=== PATIENT | female | born 1945 | race Caucasian/White ===

== ENCOUNTER 2019-04-30 06:39 | Outpatient (CLI) | payer MEDICARE, SELFPAY ==
--- NOTE | ~2019-04-30 | XR_ITS ---
EXAMINATION: XR chest 2V EXAM DATE: 04/30/2019 07:13 INDICATION: Dementia. TECHNIQUE: Frontal and lateral projections of the chest obtained and reviewed. Comparison is made to prior examination from 12/17/2018. FINDINGS: The lungs are clear. There are no pleural effusions. The cardiomediastinal silhouette is within normal limits. There is no pneumothorax suspected. There are cholecystectomy clips. There ar e bony degenerative changes. IMPRESSION: No acute cardiopulmonary findings. Reviewed, dictated and finalized at location B. GER VISUAL
--- NOTE | ~2019-04-30 | MR_ITS ---
EXAMINATION: MR brain/brain stem wo flo EXAM DATE: 04/30/2019 08:09 INDICATION: Short-term memory problems. TECHNIQUE: Magnetic resonance imaging (MRI) of the brain/brain stem obtained without contrast. Sagitt al T1, axial diffusion, gradient echo (T2*), T1, T2, FLAIR sequences obtained. Comparison is made to prior examination from 04/04/2014. FINDINGS: There are no areas of restricted diffusion to suggest acute infarction. There is no acute hemorrhage seen on the T2*, a hemosiderin sensitive sequence. No intraparenchymal brain mass lesion. There is mild periventricular and subcortical T2/FLAIR signal hyperintensity, nonspecific but probab ly related to small vessel ischemic disease (microangiopathy). There is mild prominence of the sulc i and ventricles related to cerebral atrophy. There are no extra-axial collections. Flow voids are seen in the cerebral arteries on the T2-weighted sequences consistent with their expected patency. The orbits are unremarkable. Soft tissue is unremarkable. IMPRESSION: 1. No acute intracranial findings. 2. Chronic age related findings. Reviewed, dictated and finalized at location B. FOLDER
== END 2019-04-30 06:40 | disposition home or self-care (01) ==
PROVIDERS: PCP Family Medicine; Visit Provider Family Medicine
DX: F03.90 Unspecified dementia, unspecified severity, without behavioral disturbance, psychotic disturbance, mood disturbance, and anxiety (principal); R41.3 Other amnesia
CPT/HCPCS: 70551; 71046

== ENCOUNTER 2020-02-03 07:54 | Outpatient (CLI) | payer MEDICARE, SELFPAY ==
--- NOTE | ~2020-02-03 | MM_ITS ---
EXAMINATION: MM screening [place] BI w boogie HISTORY: Screening TECHNIQUE: Craniocaudal and mediolateral oblique 3-D tomosynthesis images were obtained and synthetic 2-D images were generated. CAD analysis was submitted and interpreted. COMPARISON: Comparison to multiple prior studies sequentially, with oldest reviewed study dated 08/22. BREAST PARENCHYMAL COMPOSITION: There are scattered areas of fibroglandular density. FINDINGS: There is no evidence of suspicious mass, calcification, or architectural distortion to sugg est malignancy in either breast. There has been no suspicious interval change. IMPRESSION: 1. No mammographic evidence of malignancy. 2. Recommend routine screening mammography in one year. BI-RADS Category 1: Negative Reviewed, dictated and finalized at location A. [place] EVENT COORDINATOR
--- NOTE | ~2020-02-03 | DEXA_ITS ---
Bone Density Report Name: Nahomy Shaikh Age: 74 Sex: Female Ethnicity: White Date of : 1945 Indication: postmenopausal; height loss; cancer; Referring Provider: Dillon Darling Study: Bone densitometry was performed. Exam Date: February 03, 2020 Accession number: [id number] Bone Density: Region BMD T-score Z-score Classification AP Spine (L1-L4) 1.319 2.5 4.7 Normal Femoral Neck (Left) 0.829 -0.2 1.7 Normal Total Hip (Left) 1.010 0.6 2.2 Normal Total Hip Bilateral Avg 1.017 0.7 2.3 Normal Femoral Neck (Right) 0.886 0.3 2.3 Normal Total Hip (Right) 1.022 0.7 2.3 Normal World Health Organization criteria for BMD impression classify patients as: Normal (T-score at or above -1.0), Osteopenia (T-score between -1.0 and -2.5), or Osteoporosis (T-score at or below -2.5). 10-year Fracture Risk: FRAX not reported because: All T-scores for Spine Total, Hip Total, Femoral Neck at or above -1.0 Previous Exams: Region Exam Age BMD T-score BMD Change BMD Change Date g/cm2 vs Baseline vs Previous AP Spine(L1-L4) 02/03/2020 74 1.319 2.5 0.105(8.7%)# 0.051(4.0%)# 02/03/2013 67 1.268 2.0 0.055(4.5%)# 0.105(9.1%)# 02/11/2009 63 1.162 1.0 -0.051(-4.2%)* -0.082(-6.6%)* 01/14/2006 60 1.245 1.8 0.031(2.6%)* 0.031(2.6%)* 01/09/2004 58 1.213 1.5 Total Hip(Left) 02/03/2020 74 1.010 0.6 -0.222(-18.0%) -0.149(-12.9%) 02/03/2013 67 1.159 1.8 -0.072(-5.9%)# -0.014(-1.2%)# 02/11/2009 63 1.173 1.9 -0.058(-4.7%)* -0.018(-1.5%) 01/14/2006 60 1.191 2.0 -0.040(-3.2%)* -0.040(-3.2%)* 01/09/2004 58 1.231 2.4 Total Hip(Right) 02/03/2020 74 1.022 0.7 -0.200(-16.4%) -0.147(-12.5%) 02/03/2013 67 1.169 1.9 -0.054(-4.4%)# 0.006(0.5%)# 02/11/2009 63 1.162 1.8 -0.060(-4.9%)* -0.009(-0.8%) 01/14/2006 60 1.171 1.9 -0.051(-4.2%)* -0.051(-4.2%)* 01/09/2004 58 1.222 2.3 *Denotes significance at 95% confidence level, LSC for AP Spine = 0.022 g/cm2, LSC for Total Hip = 0.027 g/cm2 Clinical Information Provided by Patient: Has the following medical conditions: Cancer Patient maximum height was 65.5 Menopause Age: 54 No regular weight bearing exercise Does not regularly consume dairy products Onset of menses at age 14 Number of children 5 Impression: The patient has normal bone mass. No significant bone loss was observed. Discussion: BONE DENSITY IS AB
== END 2020-02-03 07:55 | disposition home or self-care (01) ==
LOC: ANHIMG 07:59
PROVIDERS: PCP Family Medicine; Visit Provider Physician Assistant Medical
DX: Z12.31 Encounter for screening mammogram for malignant neoplasm of breast (principal); Z78.0 Asymptomatic menopausal state
CPT/HCPCS: 77063; 77067; 77080

== ENCOUNTER 2020-05-30 10:44 | Emergency (ER) | payer MEDICARE, SELFPAY ==
--- NOTE | ~2020-05-30 | XR_ITS ---
EXAMINATION: XR knee RT min 4V DATE: 05/30/2020 11:55 INDICATION: Right knee pain. TECHNIQUE: 4 views of right knee were obtained. COMPARISON: Right knee radiographs 11/18/2013 FINDINGS: There is a total right knee arthroplasty in near-anatomic alignment with patellar resurfaci ng. No fracture. No periprosthetic lucency to suggest loosening or infection. There is no knee joint effusion. IMPRESSION: 1. Total right knee arthroplasty in near-anatomic alignment. Reviewed, dictated and finalized at location A. AGENT
--- NOTE | ~2020-05-30 | CT_ITS ---
EXAMINATION: CT facial & cervical spine wo DATE: 05/30/2020 11:44 INDICATION: Head injury. TECHNIQUE: Computed tomography (CT) of the maxillofacial region and cervical spine was performed with out intravenous contrast. Automated exposure control and iterative reconstruction technique were empl oyed. The dose-length product was 417.05 mGy-cm. COMPARISON: None FINDINGS: MAXILLOFACIAL CT: There is frontal scalp soft tissue swelling. The orbits are normal. There is minimal mucosal thickeni ng in left maxillary sinus. Bone alignment is normal. No fracture. CERVICAL SPINE CT: There is kyphosis and 7 degrees levocurvature of cervical spine. Vertebral body heights are normal. T here is moderately decreased disc height at C4-C5 and severely decreased disc height at C5-C6 and C6- C7. The following disc levels are specifically discussed: C2-C3: There is mild bilateral uncovertebral joint osteoarthritis. There is severe bilateral facet carrie int osteoarthritis. There is no neural foraminal stenosis. There is no central canal stenosis. C3-C4: There is mild right and severe left uncovertebral joint osteoarthritis. There is severe bilate ral facet joint osteoarthritis. There is mild right and moderate left neural foraminal stenosis. Ther e is mild central canal stenosis. C4-C5: There is severe bilateral uncovertebral joint osteoarthritis. There is severe bilateral facet joint osteoarthritis. There is mild bilateral neural foraminal stenosis. There is mild central canal stenosis. C5-C6: There is severe bilateral uncovertebral joint osteoarthritis. There is severe bilateral facet joint osteoarthritis. There is mild bilateral neural foraminal stenosis. There is mild central canal stenosis. C6-C7: There is severe bilateral uncovertebral joint osteoarthritis. There is severe bilateral facet joint osteoarthritis. There is mild bilateral neural foraminal stenosis. There is mild central canal stenosis. C7-T1: There is no uncovertebral joint osteoarthritis. There is severe bilateral facet joint osteoart hritis. There is mild bilateral neural foraminal stenosis. There is no central canal stenosis. IMPRESSION: 1. No fracture. 2. Severe cervical spondylosis. Reviewed, dictated and finalized at location A. ICE COUNTER CASHIER
--- NOTE | ~2020-05-30 | CT_ITS ---
EXAMINATION: CT brain wo con DATE: 05/30/2020 11:44 INDICATION: Head injury. TECHNIQUE: Computed tomography (CT) of the head was performed without intravenous contrast. The mA wa s adjusted according to patient size. Iterative reconstruction technique was employed. The dose-lengt h product was 605.33 mGy-cm. COMPARISON: None FINDINGS: There are scattered areas of low attenuation in the cerebral white matter. There is no intr acranial hemorrhage, acute infarction, or abnormal intracranial mass lesion. The ventricles are luca l in size. There is frontal scalp soft tissue swelling. The paranasal sinuses are clear. The orbits a re normal. The mastoid air cells are normal. IMPRESSION: 1. Mild nonspecific cerebral white matter disease, which likely represents chronic small vessel ische brigitte disease. Reviewed, dictated and finalized at location A. HAND IMPRESSION: 1. Mild nonspecific cerebral white matter disease, which likely represents separator inserter ab small vessel ischemic disease.
--- NOTE | ~2020-05-30 | XR_ITS ---
EXAMINATION: XR knee LT min 4V DATE: 05/30/2020 11:55 INDICATION: Left knee pain. TECHNIQUE: 4 views of left knee were obtained. COMPARISON: None. FINDINGS: There is a total left knee arthroplasty in near-anatomic alignment with patellar resurfacin g. No fracture. No periprosthetic lucency to suggest loosening or infection. There is a small knee carrie int effusion. There is anterior soft tissue swelling. IMPRESSION: 1. Total left knee arthroplasty in near-anatomic alignment. 2. Small knee joint effusion. Reviewed, dictated and finalized at location A. ON CLASSER AIDE
[2020-05-30 10:59] VITALS: BP 155/81; PULSE 70; RESP 18; TEMP 36.6; O2SAT 98
[2020-05-30] MEDS: ACETAMINOPHEN 500 MG TABLET 1000 MG PO (11:58)
[2020-05-30] MEDS: TETANUS,DIPHTHERIA,AC PERTUSSIS ADULT (0.5 ML) BOOSTRIX IM (11:59)
--- NOTE | 2020-05-30 12:34 | ED.FALL ---
HPI - Fall General Chief Complaint: Fall Stated Complaint: fall, head injury Time Seen by Provider: 05/30/20 10:52 Source: patient Mode of arrival: ambulatory Limitations: no limitations History of Present Illness HPI Narrative: This is a 74 year old female who presents for evaluation of a head injury s/p fall. She states her foot got caught getting out of the car, so she fell face first, hitting the concrete. She denies LOC or dizziness. She does not take any blood thinners. She has abrasions to her face and nose but she denies epistaxis. She reports right sided neck pain and right hand abrasion. She also reports bilateral knee pain and she has a history of bilateral knee replacements. She is unaware of her last tetanus shot. She has been ambulatory since her fall. complaint: fall Onset (ago): hour(s) (3) Related Data Home Medications Medication Instructions Recorded Confirmed lamotrigine 150 mg tablet 150 mg PO DAILY 11/04/19 05/17/20 donepezil 10 mg tablet 10 mg PO ONCE 05/22/20 mirtazapine 15 mg tablet 15 mg PO DAILY 05/22/20 venlafaxine 75 mg tablet 75 mg PO DAILY 05/22/20 Allergies Allergy/AdvReac Type Severity Reaction Status Date / Time loratadine Allergy Unknown Unknown Verified 05/30/20 10:53 Review of Systems Review of Systems: All systems reviewed & are unremarkable except as noted in HPI and below PMFSH Past Medical History Medical History Hallux valgus with bunions (~2005) Hammertoe History of basal cell carcinoma (~1993) Wears glasses Surgical History Surgical History 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 History of breast biopsy (~2006) benign History of knee replacement x 2 Hx of cholecystectomy (~1994) S/p nephrectomy 02-15-19/ right lap nephrectomy/ right renal cell cancer Family History Family History Mother Diabetes mellitus Depression Dementia Hyperlipidemia Father Hypertension Heart disease Cancer of kidney Mitral valve prolapse Anxiety Hyperlipidemia Sibling Bone cancer Other Family history of arthritis Family history of glaucoma Family history of malignant neoplasm Social History Social History (Updated 05/22/20 @ 09:27 by Anastasiya Orozco MA) Smoking status: Never smoker Alcohol intake: current Substance use: never Gender identity (if verbalized by the patient): Female Exam Const: General: no acute distress and alert Orientation/consciousness: patient oriented x3 HENMT: Head: other (mid forehead hematoma with left forehead abrasion) General nose exam: Other nasal findings present (swelling to nasal brigde with bruising and abrasion, left periorbital ecchy) Mouth: Yes lip normal Throat: uvula midline Eyes: Pupils: Equal, round and reactive pupils present EOM: EOMs intact bilaterally Chest: Chest palpation & inspection: normal inspection of the chest Resp: Effort & Inspection: normal respiratory effort and no retractions Auscultation: clear to auscultation bilaterally Cardio: Rate: regular rate Rhythm: regular rhythm Heart sounds: no murmurs GI: GI Palp: Yes Soft to palpation, No Tenderness to palpation present (GI) and No Guarding due to palpation present (GI) Auscultation: normal bowel sounds Back/Spine/Pelvis: Cervical Spine: cervical ROM normal, cervical muscular tenderness and Cervical spine tenderness Skin: Other: abrasion to bilateral knee with bilateral ecchymosis, FROM Neuro: General: patient oriented x3 and moves all extremities Course Reevaluation(s) Reevaluation #1: I Discussed with patient CT findings. She has abrasion with skin partial avulsion to right hand palmar along 5th cp. She request me to remove skin so I cleaned it with saline and removes small piece with scissors. I otoniel
[2020-05-30 12:59] VITALS: BP 118/68; PULSE 72; RESP 17; O2SAT 100
== END 2020-05-30 13:00 | disposition home or self-care (01) ==
PROVIDERS: Emergency Provider General Practice; PCP Family Medicine
DX: S00.31XA Abrasion of nose, initial encounter (principal); S80.01XA Contusion of right knee, initial encounter; S80.02XA Contusion of left knee, initial encounter; S00.83XA Contusion of other part of head, initial encounter; S05.12XA Contusion of eyeball and orbital tissues, left eye, initial encounter; S61.401A Unspecified open wound of right hand, initial encounter; M54.2 Cervicalgia; Z23 Encounter for immunization; Z85.828 Personal history of other malignant neoplasm of skin; Z96.653 Presence of artificial knee joint, bilateral; Z90.5 Acquired absence of kidney; Z85.528 Personal history of other malignant neoplasm of kidney; R90.82 White matter disease, unspecified; M47.812 Spondylosis without myelopathy or radiculopathy, cervical region; W17.89XA Other fall from one level to another, initial encounter
CPT/HCPCS: 11042; 70450; 70486; 72125; 73564; 90471; 90715; 99284; A9270

== ENCOUNTER 2020-08-08 09:30 | Outpatient (RCR) | payer MEDICARE, SELFPAY ==
--- NOTE | 2020-07-04 11:39 | PTOPEVAL ---
Thank you for referring Nahomy Shaikh to [facility] [place] The patient is scheduled to be seen for therapy? 2 x/week for 5 weeks. Please review, sign, date and return this plan of care RUTH. I agree with and certify that the following plan of care is medically necessary. Referring Physician Date Attending Provider: Dorothy Tao MD Physical Therapy Evaluation Problems leg length difference, unsteadiness, fall Onset 05/30/20 Additional Evaluation Detail jose m knee replacement She had a fall last month getting out of the car, hitting her head. Denies any other falls. She rides recumbent bike for 30 min at level 1. Subjective Information She reports she has difficulty Query Text:As Reported By Patient/ with walking that is worse Family when in the community. She will use objects to assist with mobilty at home. She reports difficulty getting off low surface, getting objects from the ground. Reports her knees ache. Reports increase dizziness with changing position States her legs are different length, but has never been measured. Prior Level of Function Home Setting Home Type Multiple Levels Environmental Barriers Stairs, Greater than 4,Stairs, Threshold Living Situation With Spouse Mobility Assistive Devices (Used Last 3 None Months) Comments Additional Prior Level of Function She has 1 step to enter, and 1 Comments flight to basement, but does not go into basement. She performs minimal driving. 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 Pain Assessment Self Report Pain Level 0 Pain Score Pain Score 0: Self Report Lower Extremity Range of Motion General Lower Extremity Range of Motion Gross Lower Extremity Range of Motion left knee: 0-112 deg Comments right knee: 0-114 deg Lower Extremity Muscle Strength Testing Hip Strength Right Hip Flexion Strength 3 Fair Hip Extension Strength 3- Fair - Hip Abduction Strength 3- Fair - Left Reason Not Measured WNL/Right Hip Flexion Strength 4 Good Hip Extension Strength 3 Fair Hip Abduction Strength
--- NOTE | 2020-07-14 14:24 | PCPTNOTE ---
Patient did not show to appointment this date. Therapist called patient who stated she thought her appointment was at a different time. Verified next appointment with patient on July 18.
--- NOTE | 2020-07-25 09:45 | PCPTNOTE ---
Patient did not show up for scheduled appointment this date. Called and had to leave a message.
--- NOTE | 2020-08-08 10:22 | PTOPEVAL ---
Thank you for referring Nahomy Shaikh to [facility] [place] [facility] Nahomy Yoon has attended 9 therapy visits to address her impairments. She has partially achieved her therapy goals. She is indep with her home program with improve mobility, strength and tolerance with daily activities. She has reached maximal potential with skilled therapy services. Will DC PT at this time. Please review, sign, date and return this discharge summary RUTH. I agree with and certify that the following plan of care is medically necessary. Referring Physician Date Attending Provider: Dorothy Tao MD Physical Therapy Discharge Note Diagnosis leg length difference, unsteadiness, fall Onset 05/30/20 Additional Evaluation Detail jose m knee replacement She had a fall last month getting out of the car, hitting her head. Denies any other falls. She rides recumbent bike for 30 min at level 1. Subjective Information She does feel like she is Query Text:As Reported By Patient/ doing better. She has improved Family vestibular impairments. She is using the shoe lift and reports some improved balance. She reports some days she has no knee pain or limitations. She is able to walk the grocery store without limitations. She is using the cane when walking longer distances without difficulty. Not using the cane at home. She continues to have a fear of steps and not trusting her right leg for support. Denies increase dizziness with changing position. Pain Assessment Self Report Pain Level 0 Lower Extremity Muscle Strength Testing Hip Strength Right Hip Flexion Strength 4+ Good + Hip Extension Strength 4- Good - Hip Abduction Strength 3 Fair Left Hip Flexion Strength 4+ Good + Hip Extension Strength 4- Good - Hip Abduction Strength 3 Fair Knee Strength Left Knee Flexion Strength 4+ Good + Knee Extension Strength 5 Normal Right Knee Flexion Strength 4+ Good + Knee Extension Strength 5 Normal Ankle Strength Bilateral Ankle Dorsiflexion Strength 5 Normal Posture Standing Position Head/C-Spine Posture Forward Head Thoracic Spine Posture Increased Kyphosis Lumbar Spine Posture
== END 2020-08-09 09:17 | disposition home or self-care (01) ==
LOC: ANHPT 09:30
PROVIDERS: PCP Family Medicine; Visit Provider Family Medicine
DX: M21.70 Unequal limb length (acquired), unspecified site (principal); R26.81 Unsteadiness on feet; E66.01 Morbid (severe) obesity due to excess calories; Z68.37 Body mass index [BMI] 37.0-37.9, adult; Z96.659 Presence of unspecified artificial knee joint
CPT/HCPCS: 97110; 97162; 97530

== ENCOUNTER 2021-10-04 10:00 | Outpatient (RCR) | payer MEDICARE, SELFPAY ==
--- NOTE | 2021-08-09 15:24 | PTOPEVAL ---
PHYSICAL THERAPY INITIAL EVALUATION. Thank you for referring Nahomy Shaikh to [facility].? The patient is scheduled to be seen for therapy? 2x/week for 4 weeks. Please review, sign, date and return this plan of care RUTH. I agree with and certify that the following plan of care is medically necessary. Referring Physician Date Attending Provider: Dorothy Tao MD Evaluation Information Diagnosis Neck pain Onset Chronic Subjective Information Pt states she has neck pain Query Text:As Reported By Patient/ that comes and goes, she does Family not know what causes the pain to fluctuate. She declines headaches. She is often woken up in the middle of the night due to pain. Pain Assessment Neck Reported Pain Level 0 Pain Description Tightness Pain Frequency Chronic Lowest Pain Intensity 0 Greatest Pain Intensity 7 Cervical ROM Cervical Flexion (0-60) 28 active Cervical Extension (0-70) 50 active Cervical Lateral Flexion Right (0-50) 24 active Cervical Lateral Flexion Right (0-50) 30 passive Cervical Lateral Flexion Left (0-50) 21 active Cervical Lateral Flexion Left (0-50) 30 passive Cervical Rotation Right (0-90) 48 active Cervical Rotation Right (0-90) 60 passive Cervical Rotation Left (0-90) 45 active Cervical Rotation Left (0-90) 60 passive Cervical ROM 50% of Normal Upper Extremity Range of Motion Gross Upper Extremity Range of Motion R shoulder flexion active 109, Comments passive 130 L shoulder flexion 121, passive, 136 R shoulder abduction active 92 in scaption, passive 90 in true abduction L shoulder abduction active 104 in scaption, passive 100 in true abduction R,L functional ext rot: C7, T2 R,L functional IR: L5, LR increased upper trap activation and shoulder elevation with use of shoulder Upper Extremity Muscle Strength Testing Gross Upper Extremity Strength Comments BUE grossly 4/5 Jeffery shoulder ext rot 3+/5 Posture Posture Evaluation View Posterior Thoracic Spine Posture Flattened Lumbar Spine Posture Increased Lordosis Shoulder Posture (L) Rounded,(R) Rounded Scapula Posture (L) Winged
--- NOTE | 2021-09-07 14:21 | PTOPEVAL ---
PHYSICAL THERAPY PROGRESS REPORT. Thank you for referring Nahomy Shaikh to [facility] [place].? The patient is scheduled to be seen for therapy? 1x/week for 4 weeks. Please review, sign, date and return this plan of care RUTH. I agree with and certify that the following plan of care is medically necessary. Referring Physician Date Attending Provider: Dorothy Tao MD *PT Outpatient Evaluation Start: 08/09/21 Evaluation Information Diagnosis Neck pain Onset Chronic Subjective Information Pt states her neck is doing Query Text:As Reported By Patient/ alright. She states she Family usually wakes up around 5am with neck stiffness, she states this decreases during the day but is not perfect. By early evening the pain has starting to increase again, she states she does not normally do much during the day for the pain to increase again. She reports good compliance with her HEP. Pain Assessment Self Report Pain Assessment Neck Reported Pain Level 0 Pain Description Aching,Tightness Greatest Pain Intensity 5 Cervical ROM Cervical Flexion (0-60) 44 active Cervical Extension (0-70) 50 active Cervical Lateral Flexion Right (0-50) 35 active Cervical Lateral Flexion Right (0-50) 45 passive Cervical Lateral Flexion Left (0-50) 28 active Cervical Lateral Flexion Left (0-50) 45 passive Cervical Rotation Right (0-90) 45 active Cervical Rotation Right (0-90) 60 passive Cervical Rotation Left (0-90) 58 active Cervical Rotation Left (0-90) 70 passive Cervical ROM 75% of Normal Upper Extremity Range of Motion Gross Upper Extremity Range of Motion R shoulder flexion active 109, Comments passive 130 L shoulder flexion 121, passive 136 R shoulder abduction active 96 in true abduction L shoulder abduction active 114 in scaption, passive 114 in true abduction R,L functional ext rot: T2, T2 R,L functional IR: L5, L5 increased upper trap activation and shoulder elevation with use of shoulder Upper Extremity Muscle Strength Testing Gross Upper Extremity Strength Comments BUE grossly 4+/5 Jeffery shoulder ext r
--- NOTE | 2021-09-13 11:25 | PCPTNOTE ---
Patient called & cancelled scheduled appointment this date due to not feeling well.
--- NOTE | 2021-10-04 12:34 | PTOPEVAL ---
PHYSICAL THERAPY PROGRESS REPORT AND DISCHARGE SUMMARY. Thank you [facility] The patient is to be discharged from therapy services at this time. Please review, sign, date and return this plan of care RUTH. I agree with and certify that the following plan of care is medically necessary. Referring Physician Date Attending Provider: Dorothy Tao MD Evaluation Information Diagnosis Neck and shoulder pain Onset Chronic Subjective Information Pt states her neck and Query Text:As Reported By Patient/ shoulder are both doing decent Family . She declines waking up in the night due to pain. She declines pain at rest, in the morning, and at night like before. She now only reports pain with active motions reaching out and over her head . She only reports neck pain with max rotation. Pain Assessment Neck Reported Pain Level 0 Greatest Pain Intensity 4 Cervical ROM Cervical Flexion (0-60) 48 active Cervical Extension (0-70) 50 active Cervical Lateral Flexion Right (0-50) 35 active Cervical Lateral Flexion Right (0-50) 45 passive Cervical Lateral Flexion Left (0-50) 35 active Cervical Lateral Flexion Left (0-50) 45 passive Cervical Rotation Right (0-90) 45 active Cervical Rotation Right (0-90) 60 passive Cervical Rotation Left (0-90) 55 active Cervical Rotation Left (0-90) 70 passive Cervical ROM 75% of Normal Upper Extremity Range of Motion Gross Upper Extremity Range of Motion R shoulder flexion active 98, Comments passive 135 L shoulder flexion active 121, passive 138 R shoulder abduction active 90 in true abduction L shoulder abduction active 92 in true abduction, passive 120 in true abduction R,L functional ext rot: T2, T2 R,L functional IR: L5, L5 increased upper trap activation and shoulder elevation with use of shoulder Upper Extremity Muscle Strength Testing Gross Upper Extremity Strength Comments BUE grossly 4+/5 Jeffery shoulder ext rot 4/5 Posture Posture Evaluation View Posterior Thoracic Spine Posture Flattened Lumbar Spine Posture Increased Lordosis Shoulder Posture (L) [place]
== END 2021-10-04 15:06 | disposition home or self-care (01) ==
LOC: ANHPT 10:00
PROVIDERS: PCP Family Medicine; Visit Provider Family Medicine
DX: M54.2 Cervicalgia (principal); G30.9 Alzheimer's disease, unspecified; F02.80 Dementia in other diseases classified elsewhere, unspecified severity, without behavioral disturbance, psychotic disturbance, mood disturbance, and anxiety
CPT/HCPCS: 97014; 97110; 97112; 97140; 97161; 97530; G0283

== ENCOUNTER → 2021-12-25 14:37 | Outpatient (CLI) | payer MEDICARE, SELFPAY ==
--- NOTE | ~2021-12-25 | XR_ITS ---
EXAMINATION: XR shoulder LT min 2V DATE: 12/25/2021 15:02 INDICATION: Left shoulder pain. TECHNIQUE: 4 views of left shoulder were obtained. COMPARISON: Left shoulder radiographs 07/30/2018 FINDINGS: Bone alignment is normal. No fracture. There is severe osteoarthritis of glenohumeral joint and mild osteoarthritis of acromioclavicular joint. IMPRESSION: 1. Polyarticular osteoarthritis. Reviewed, dictated and finalized at location A.
--- NOTE | ~2021-12-25 | XR_ITS ---
EXAMINATION: XR shoulder RT min 2V DATE: 12/25/2021 15:02 INDICATION: Right shoulder pain. TECHNIQUE: 4 views of right shoulder were obtained. COMPARISON: Right shoulder radiographs 07/30/2018 FINDINGS: Bone alignment is normal. No fracture. There is severe osteoarthritis of glenohumeral joint and mild osteoarthritis of acromioclavicular joint. IMPRESSION: 1. Polyarticular osteoarthritis. Reviewed, dictated and finalized at location A.
== END ==
PROVIDERS: PCP Physician Assistant; Visit Provider Physician Assistant
DX: M19.011 Primary osteoarthritis, right shoulder (principal); M19.012 Primary osteoarthritis, left shoulder
CPT/HCPCS: 73030

== ENCOUNTER 2022-02-09 12:58 | Inpatient (IN) | payer MEDICARE, SELFPAY ==
[2022-02-09] VITALS (15 sets, daily range): BP systolic 100–140; BP diastolic 66–80; PULSE 85–101; RESP 12–25; TEMP 36.3–36.8; O2SAT 97–100; BMI 29.7
--- NOTE | ~2022-02-09 | XR_ITS ---
XR chest 1V portable DATE: 02/09/2022 14:38 INDICATION: Confusion, ambulatory impairment TECHNIQUE: Portable upright AP chest on 02/09/2022 at 1425 hours COMPARISON: 04/30/2019 PA and lateral chest FINDINGS: Borderline heart size. Aortic calcification and unfolding. No hilar or mediastinal enlargem ent. No pulmonary infiltrate or consolidation, pleural effusion or pulmonary vascular congestion or pneumo thorax is detected. Osteopenia. Severe osteoarthritic change at the glenohumeral joints. Degenerative spurring of the tho racic spine. Surgical clips, right upper quadrant. IMPRESSION: Borderline heart size. Aortic atherosclerosis No active pulmonary disease Reviewed, dictated and finalized at location A. 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
--- NOTE | ~2022-02-09 | MR_ITS ---
EXAMINATION: MR brain/brain stem wo/w con DATE: 02/10/2022 12:48 INDICATION: Confusion. TECHNIQUE: Magnetic resonance imaging (MRI) of the brain and brainstem was performed without and with 17 mL MultiHance intravenous contrast. COMPARISON: Brain MRI 04/30/2019, head CT 02/09/2022, 05/30/20 FINDINGS: There is widespread patchy increased T2-weighted signal intensity in the cerebral white mat ter with a posterior predominance. There is increased T2-weighted signal intensity in the javy. There is no intracranial hemorrhage, acute infarction, or abnormal intracranial mass lesion. The ventricle s are normal in size. The paranasal sinuses are clear. The mastoid air cells are normal. The orbits a re normal. IMPRESSION: 1. Extensive white matter disease with a posterior predominance with marked worsening from 05/30/2020, consistent with posterior reversible encephalopathy syndrome (PRES). Reviewed, dictated and finalized at location E. ST IMPRESSION: 1. Extensive white matter disease with a posterior predominance with marked wor sening from 05/30/2020, consistent with posterior reversible encephalopathy syndr ome (PRES).
--- NOTE | ~2022-02-09 | CT_ITS ---
EXAMINATION: CT brain wo con DATE: 02/09/2022 15:14 INDICATION: Confusion. Transient alteration of awareness TECHNIQUE: Computed tomography (CT) of the head was performed without intravenous contrast. The mA wa s adjusted according to patient size. Iterative reconstruction technique was employed. Exam dose: 60 5.33 mGy-cm total exam DLP. COMPARISON: 05/30/2020 CT brain FINDINGS: There is interval diminished attenuation in the right temporal parietal occipital area, lik mera due to subacute infarct. No intracranial mass lesion or hemorrhage, midline shift or mass effect effect is detected. Normal ve ntricular size. There is nonspecific diminished attenuation of the cerebral white matter, likely due to chronic small vessel ischemic changes. Vertebral and basilar and carotid siphon internal carotid artery calcificat ions are noted. No subdural or epidural hematoma. No skull fracture or bone destruction. The mastoid air cells and included paranasal sinuses are luca lly developed and aerated. IMPRESSION: Diminished attenuation in the right temporoparietal occipital area, likely due to subacu te infarcts; no intracranial hemorrhage Cerebral atherosclerosis and chronic small vessel ischemic changes of the cerebral white matter Reviewed, dictated and finalized at Location A. Reviewed, dictated and finalized at location A. 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
--- NOTE | ~2022-02-09 | CT_ITS ---
EXAMINATION: CTA brain carotid DATE: 02/10/2022 12:59 INDICATION: Stroke. TECHNIQUE: Computed tomographic angiography (CTA) of the head was performed with 100 mL Omnipaque-350 intravenous contrast. CTA of the neck was performed with intravenous contrast. Automated exposure co ntrol and iterative reconstruction technique were employed. The dose-length product was 1135.92 mGy-c m. Maximum intensity projection and volume rendered 3D-reconstructions were created by the technologi on a separate workstation. COMPARISON: Head CT 02/09/2022 FINDINGS: HEAD CTA: There is extensive patchy distribution of decreased attenuation in the cerebral white matte r with a posterior prominence. There is decreased attenuation in the javy. There is no intracranial h emorrhage, acute infarction, or abnormal intracranial mass lesion. The ventricles are normal in size. There is mild mucosal thickening in the paranasal sinuses. The mastoid air cells are normal. The harmeet tebral arteries are codominant. There is no significant stenosis of basilar artery or the posterior c erebral arteries. There is no significant stenosis of the intracranial internal carotid arteries or a nterior or middle cerebral arteries. Anterior communicating artery is normal. The posterior communica ting arteries are normal. There is no aneurysm. NECK CTA: Main pulmonary is enlarged, consistent with pulmonary arterial hypertension. There is no si gnificant stenosis of the vertebral arteries. There is no visible plaque in the proximal internal car otid arteries. There is 0% stenosis of the proximal right internal carotid artery relative to normal distal artery lumen diameter (NASCET criteria). There is 0% stenosis of the proximal left internal ca rotid artery relative to normal distal artery lumen diameter. There is severe cervical spondylosis. IMPRESSION: 1. Extensive cerebral white matter disease, likely posterior reversible encephalopathy syndrome (PRES ). 2. No aneurysm or significant intracranial arterial stenosis. 3. 0% stenosis of the proximal internal carotid arteries relative to normal distal artery lumen diame ters (NASCET criteria). Reviewed, dictated and finalized at location E. ANCHOR IMPRESSION: 1. Extensive cerebral white matter disease, likely posterior reversible encepha lopathy syndrome (PRES). 2. No aneurysm or significant intracranial arterial stenosis. 3. 0% stenosis of the proximal internal carotid arteries relative to normal dis lyla artery lumen diameters (NASCET criteria).
--- NOTE | 2022-02-09 14:20 | ECG_ITS ---
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
--- NOTE | 2022-02-09 14:23 | ED.AMS ---
HPI - Altered Mental Status General Chief Complaint: Altered Mental Status Stated Complaint: Memory problems, altered mental status Time Seen by Provider: 02/09/22 14:09 Source: patient, family () and RN notes reviewed Limitations: altered mental status History of Present Illness HPI narrative: This is a 76 year old female with history of dementia, hyperlipidemia who presents for evaluation of worsening confusion. Patient's reports patient has memory loss issues that she is followed by neurology at [facility]. She is enrolled in a clinical trial in which she received an infusion 3 weeks ago. He states there are no side effects and patient was doing ok until 3 days ago. For the past 3 days, she is having difficulty remember how to do things. He states he had to help her tie her shoes and get dressed today. He also reports she has shuffling gait and needing visual merchandising assistant to walk. He denies any recent fall, medication change, fever, chills. Patient is oriented to person and age. She is also aware of her . She did not know that she is in hospital currently. She is aware of being forgetful and having difficulty thinking. Related Data Home Medications Medication Instructions Recorded Confirmed lamotrigine 150 mg tablet 150 mg PO DAILY 11/04/19 02/09/22 mirtazapine 15 mg tablet 15 mg PO DAILY 05/22/20 02/09/22 venlafaxine 150 mg tablet,extended 150 mg PO DAILY 10/26/20 02/09/22 release 24 hr mecobalamin (vitamin B12) 1,000 1,000 mcg PO DAILY 12/20/21 02/09/22 mcg chewable tablet memantine 10 mg tablet 10 mg PO BID 02/09/22 02/09/22 Allergies Allergy/AdvReac Type Severity Reaction Status Date / Time No Known Drug Allergies Allergy Mild Unknown Verified 02/09/22 18:10 Review of Systems Review of Systems: All systems reviewed & are unremarkable except as noted in HPI and below Constitutional: Constitutional: Denies chills, Denies fatigue and Denies fever(s) Eyes: Eyes: Denies change in vision and Denies photophobia Respiratory: Respiratory: Denies chest congestion and Denies cough Gastrointestinal: Gastrointestinal: Denies abdominal pain, Denies nausea and Denies vomiting PMFSH Past Medical History Medical History (Updated 02/09/22 @ 21:59 by Meghan Brandt MD) Acquired leg length discrepancy Alzheimer disease neuro 09.11.21 stable/ no changes in management Cervical polyp 2020 benign Depression with anxiety Hallux valgus with bunions (~2005) Hammertoe History of basal cell carcinoma (~1993) History of renal carcinoma right nephrectomy 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 Prolapse of female pelvic organs Ventral hernia Wears glasses Surgical History Surgical History 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 History of breast biopsy (~2006) benign History of knee replacement x 2 Hx of cholecystectomy (~1994) S/p nephrectomy 02-15-19/ right lap nephrectomy/ right renal cell cancer Family History Family History Mother Diabetes mellitus Depression Dementia Hyperlipidemia Father Hypertension Heart disease Cancer of kidney Mitral valve prolapse Anxiety Hyperlipidemia Sibling Bone cancer Other Family history of arthritis Family history of glaucoma Family history of malignant neoplasm Social History Social History (Updated 02/09/22 @ 20:47 by Rosalba Goodman PA-C) Social History: Surrogate medical decision maker: Abdolu Neel, spouse. Code status: Full code. Smoking status: Never smoker Alcohol intake: never Substance use: never Substance use type: does not use Spiritual care concerns: No Exam Const: General: alert Nutritional Appearance: well nourished Limitations: altered menta
[2022-02-09 14:39] LABS: Basophils Percent Auto 0.5 % (0.2-1.2); Eosinophils Percent Auto 0.5 % (0-4.4); Hematocrit 37.7 % (37.0-47.0); Hemoglobin 12.4 g/dL (12.0-15.0); Immature Granulocyte Absolute 0.02 K/mm3 (0.00-0.031); Immature Granulocyte Percent A 0.3 % (0-0.5); Lymphocytes Absolute Auto 2.28 K/mm3 (0.9-3.2); Lymphocytes Percent Auto 34.3 % (18.3-44.2); Mean Corpuscular HGB Conc 32.9 g/dl (32-36); Mean Corpuscular Hemoglobin 30.9 pg (26-34); Mean Platelet Volume 8.8 fl (7.4-10.4); Monocytes Absolute Auto 0.5 K/mm3 (0.1-0.6); Monocytes Percent Auto 7.1 % (2.6-8.5); Neutrophils Absolute Auto 3.8 K/mm3 (1.3-6.7); Neutrophils Percent Auto 57.3 % (45.5-73.1); Platelet Count Result 290 k/mm3 (150-375); Red Blood Count 4.01 M/mm3 (4.2-5.4); Red Cell Distribution Width 11.9 % (11.5-14.5); White Blood Count 6.6 K/mm3 (4.5-10.0)
[2022-02-09 14:49] LABS: Alanine Aminotransferase 20 U/L (6-35); Albumin Level 4.6 g/dL (3.5-5.1); Alkaline Phosphatase 64 U/L (38-126); Anion Gap 13 mmol/L (8-16); Aspartate Amino Transferase 33 U/L (14-36); Bilirubin,Total 0.4 mg/dL (0.2-1.3); Blood Urea Nitrogen 18 mg/dL (7-17); Calcium 8.9 mg/dL (8.4-10.2); Carbon Dioxide 24 mmol/L (22-30); Chloride 101 mmol/L (98-107); Estimated CRCL calculation 53 ml/min; Estimated Glomerular Filt Rate > 60; Glucose 101 mg/dL (65-110); Potassium 4.2 mmol/L (3.4-5.0); Sodium 138 mmol/L (137-145)
[2022-02-09 14:50] LABS: Ethanol < 10 mg/dL (<10)
[2022-02-09] MEDS: SODIUM CHLORIDE 0.9% IV 1,000 ML 999 ML IV CONT (14:56)
[2022-02-09 14:57] LABS: Prothrombin Time 13.2 Seconds (11.1-14.7)
[2022-02-09 14:58] LABS: Partial Thromboplastin Time 26.4 SECONDS (22.3-36.8)
[2022-02-09 15:00] LABS: Troponin I < 0.012 ng/mL (0.000-0.034)
--- NOTE | 2022-02-09 18:10 | ADMGEN ---
This patient, Nahomy Shaikh, was admitted to Medical Room 348-01. Patient/family oriented to hospital policies and general routines including ID bracelet, bed and alarms, visiting hours, pain management, procedures, bathroom and other care routines, personal items, smoking policy, room service/diet, and visiting hours. Information on how to activate the Rapid Response Team has been discussed. Patient/Family are encouraged to report perceived risks to care and to ask questions if they do not understand what they are told or what they should do.
[2022-02-09] MEDS: ASPIRIN 81 MG CHEWABLE TABLET 324 MG PO (18:49)
[2022-02-09 18:55] LABS: Appearance Urine Clear (Clear); Bilirubin Urine Negative (Negative); Blood Urine Negative (Negative); Color Urine Yellow (Yellow); Glucose Urine UA Negative (Negative); Ketones Urine Trace mg/dL (Negative); Leukocyte Esterase Ur 1+ LEU/UL (Negative); Nitrate Urine Negative (Negative); Protein Urine Negative (Negative); Specific Grav Ur 1.015 (1.001-1.035); Urobilinogen Urine 0.2 mg/dL (<2.0); pH Urine 6.5 (5.0-9.0)
[2022-02-09 19:03] LABS: RBC Urine 0-2 /hpf (0-2); Squamous Epithelial Cell Urine Rare /hpf (Few); WBC Urine 0-3 /hpf
[2022-02-09 19:12] LABS: Amphetamine Screen Urine Negative (Negative); Barbiturate Screen Urine Negative (Negative); Benzodiazepines Screen Urine Negative (Negative); Cannabinoid Screen Urine Negative (Negative); Cocaine Screen Urine Negative (Negative); Methadone Screen Urine Negative (Negative); Opiate Screen Urine Negative (Negative); Phencyclidine Screen Urine Negative (Negative)
[2022-02-09 19:16] LABS: Add Urine Microscopic? YES
--- NOTE | 2022-02-09 19:45 | PM.IMHP ---
H&P: HPI History of Present Illness Date/Time: 02/09/22 19:45 Chief Complaint: Confusion. Narrative: This is a pleasant 76-year-old female with dementia, hypertension, and dyslipidemia who presented to the emergency department today from home for evaluation of confusion. The patient appears to suffer from pretty significant short-term memory loss and while she is able to provide some history some of the following history is supplemented via a review of her electronic medical records as well as information provided by her spouse. She is followed by Neurology at [facility] and is currently enrolled in a clinical trial in which she received infusion 3 weeks ago. There were no obvious, immediate side effects and she has been doing well up until the last 3 days at which time she seems to have gone down hill. For instance she seems to be forgetting how to do everyday activities such as tying her shoes and getting dressed. Her gait has been shuffling and she is needing assistance when walking. In the emergency department her vital signs were stable and labs were unremarkable. Head CT showed diminished attenuation in the right temporoparietal occipital area likely due to subacute infarcts and she is being admitted in this setting for further workup. At the time my evaluation she is resting comfortably and has no specific complaints. She specifically denies headache, vertigo, focal weakness, paresthesias, visual changes, facial droop, difficulty speaking, difficulty swallowing. She is not having any chest pain, shortness a breath, nausea, or vomiting. She does not think she has a history of stroke, carotid artery disease, or dysrhythmia. Review of Systems Review of Systems: A review of systems was conducted but significantly limited by her short-term memory loss. She stated no to every question asked of her aside from those things listed in HPI. [facility] Past Medical History Medical History Acquired leg length discrepancy Alzheimer disease neuro 6.14. stable/ no changes in management Cervical polyp 2020 benign Depression with anxiety Hallux valgus with bunions (~2005) Hammertoe History of basal cell carcinoma (~1993) History of renal carcinoma right nephrectomy 2018/ clear cell carcinoma Mixed hyperlipidemia Obstructive sleep apnea 1.4.22 split night: mild to moderate jojo. Prolapse of female pelvic organs Ventral hernia Wears glasses Surgical History Surgical History 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 History of breast biopsy (~2006) benign History of knee replacement x 2 Hx of cholecystectomy (~1994) S/p nephrectomy 02-15-19/ right lap nephrectomy/ right renal cell cancer Family History Family History Mother Diabetes mellitus Depression Dementia Hyperlipidemia Father Hypertension Heart disease Cancer of kidney Mitral valve prolapse Anxiety Hyperlipidemia Sibling Bone cancer Other Family history of arthritis Family history of glaucoma Family history of malignant neoplasm Social History Social History (Updated 02/09/22 @ 20:47 by Rosalba Goodman PA-C) Social History: Surrogate medical decision maker: Abdoul Shaikh, spouse. Code status: Full code. Smoking status: Never smoker Alcohol intake: never Substance use: never Substance use type: does not use Spiritual care concerns: No Meds Home Medications and Allergies Home Medications Medication Instructions Recorded Confirmed Type lamotrigine 150 mg tablet 150 mg PO DAILY 11/04/19 02/09/22 History mirtazapine 15 mg tablet 15 mg PO DAILY 05/22/20 02/09/22 History venlafaxine 150 mg tablet,extended 150 mg PO DAILY 10/26/20 02/09/22 History release 24 hr atorvastatin 20 mg tablet 20 mg PO DAILY
[2022-02-10] VITALS (8 sets, daily range): BP systolic 107–113; BP diastolic 52–70; PULSE 66–98; RESP 14–18; TEMP 36.6–36.7; O2SAT 99–100
--- NOTE | 2022-02-10 01:01 | PCRCNOTE ---
patient does not wear home CPAP unit and does not want to wear one here.
[2022-02-10 06:25] LABS: Cholesterol 166 mg/dL (0-200); HDL Direct 74 mg/dL; Triglycerides 85 mg/dL (<150)
[2022-02-10 06:36] LABS: LDL Cholesterol Direct 68 mg/dL
[2022-02-10] MEDS: ASPIRIN 81 MG ENTERIC TABLET PO (08:42)
[2022-02-10] MEDS: ATORVASTATIN 20 MG TABLET PO (08:42)
[2022-02-10] MEDS: VENLAFAXINE HCL XR 75 MG CAP.ER.24H 150 MG PO (08:42)
[2022-02-10] MEDS: MIRTAZAPINE 15 MG TABLET PO (08:42)
[2022-02-10] MEDS: MELOXICAM 7.5 MG TABLET PO (08:43)
[2022-02-10] MEDS: lamoTRIgine 100 MG TABLET PO (08:43)
[2022-02-10] MEDS: lamoTRIgine 50 MG TABLET PO (08:43)
[2022-02-10] MEDS: MEMANTINE 10 MG TABLET PO ×2 (08:43→17:46)
--- NOTE | 2022-02-10 11:10 | WPDNEURCNPN ---
Assessment and Plan Assessment and plan (1) CVA (cerebral vascular accident): Code(s): I63.9 - Cerebral infarction, unspecified Status: Acute (2) Altered mental status: Code(s): R41.82 - Altered mental status, unspecified Status: Acute (3) Alzheimer disease: Code(s): G30.9 - Alzheimer's disease, unspecified; F02.80 - Dementia in other diseases classified elsewhere, unspecified severity, without behavioral disturbance, psychotic disturbance, mood disturbance, and anxiety Status: Acute Plan Ms. Shaikh is a 76 year old female with a history of dementia presenting for evaluation of behavior change including worsening memory and speech difficulties. Found to have hypodensity in the R temporoparietooccipital region, suggestive for infarct. Etiology is unclear. Considering large vessel disease. Neuro exam showed findings consistent with location of stroke -- including motor apraxia, visual agnosia, and receptive aphasia. - MRI brain w/o contrast, CTA brain and neck - Surface echo with bubble study - Depending on results of MRI, but if stroke is localized only to the region noted on CT will recommend ASA 81mg and Plavix 75mg daily x 3 months, then ASA 81mg daily. - Continue Lipitor 20mg daily Consult date: 02/10/22 Time Seen: 11:10 Reason for consult: Stroke HPI: Nahomy Shaikh is a 76 year old female with a history of Alzheimer's dementia and HLD presenting due to worsening memory deficit. At baseline patient is able to communicate appropriately and fluently, and knows her name and where she is. About three days ago, family noticed, that she was having problems with her memory and speech. She was brought to [facility] ED where she had a CT head that showed hypodensity in the right temporoparietal/occipital region suggestive of subacute infarct. Her NIH on presentation was 2 (loss of fluency and level of consciousness). EKG showed sinus rhythm. Her blood pressure was 100-140s systolic. UA and tox screen were negative as well. Her LDL is 68. She takes Lipitor 20mg daily, but was not previously on any blood thinners. , sister, and [id number] are at bedside. They feels that she is still not at baseline, and is still having difficulties mostly with memory and speech. She is followed at [facility] for her Alzheimer's and is part of a clinical trial for a new Alzheimer's drug (Remtemetug). She received an infusion about 3 weeks ago. Sister reports she had an MRI about a week ago that showed fluid on the brain . Review of Systems Review of Systems: ROS unobtainable: Yes unobtainable due to mental status PMFSH Past Medical History Medical History Acquired leg length discrepancy Alzheimer disease neuro 6 stable/ no changes in management Cervical polyp 2020 benign Depression with anxiety Hallux valgus with bunions (~2005) Hammertoe History of basal cell carcinoma (~1993) History of renal carcinoma right nephrectomy 2018/ clear cell carcinoma Mixed hyperlipidemia Obstructive sleep apnea 1.4. split night: mild to moderate jojo. Prolapse of female pelvic organs Ventral hernia Wears glasses Surgical History Surgical History 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 History of breast biopsy (~2006) benign History of knee replacement x 2 Hx of cholecystectomy (~1994) S/p nephrectomy 02-15-19/ right lap nephrectomy/ right renal cell cancer Family History Family History Mother Diabetes mellitus Depression Dementia Hyperlipidemia Father Hypertension Heart disease Cancer of kidney Mitral valve prolapse Anxiety Hyperlipidemia Sibling Bone cancer Other Family history of arthritis Family history of glaucoma Family history of malignant neoplasm Soc
--- NOTE | 2022-02-10 12:17 | PCSTNOTE ---
Patient presents with severely impaired auditory comprehension and verbal expression. Reading and visual recognition are impaired. Patient is unable to write due to inability to hold pen, appear to not recognize object. Visual recognition of objects appears impaired. Patient is able to complete highly familiar, predictable phrases with such as it's raining cats and . Able to imitate individual simple words. Able to point to body parts (ear, hair, nose, neck, chin). Yes/no responses are unreliable but within normalized context more accurate. Speech therapy is recommended with emphasis on functional communication and establishing environmental context to increase opportunities for successful communication occurrences. Thank you for the referral of this patient.
--- NOTE | 2022-02-10 13:47 | PM.IMPN ---
Progress Note: A&P Assessment and Plan (1) Cerebrovascular accident: Code(s): I63.9 - Cerebral infarction, unspecified Status: Acute Assessment and Plan: -Brain CT showed evidence of a subacute infarction in the right temporoparietal occipital area -MRI: consistent with posterior reversible encephalopathy syndrome (PRES) -echo Doppler bubble study ordered -CTA brain and carotid: consistent with MRI findings, 0% stenosis of internal carotid arteries -telemetry monitoring -due to symptoms starting on Friday patient is not a good candidate for tPA -aspirin 81 mg prescribed -statin changed to Crestor 20 mg -PT OT and speech evaluating patient -neurology following patient (2) Alzheimer disease: Code(s): G30.9 - Alzheimer's disease, unspecified; F02.80 - Dementia in other diseases classified elsewhere, unspecified severity, without behavioral disturbance, psychotic disturbance, mood disturbance, and anxiety Status: Acute Assessment and Plan: -continue home medications (3) Depression with anxiety: Code(s): F41.8 - Other specified anxiety disorders Status: Acute Assessment and Plan: Continue home medications (4) Mixed hyperlipidemia: Code(s): E78.2 - Mixed hyperlipidemia Status: Acute Assessment and Plan: Atorvastatin 20 mg discontinued and Crestor 20 mg added Time Spent With Patient Time with patient: Greater than 35 minutes Subjective Date/time seen: 02/10/22 13:47 Interval history: 76-year-old woman with history of Alzheimer's dementia, hyperlipidemia and obstructive sleep apnea. Patient brought in to the ER yesterday due to altered mental status. Patient's , sister, and thlnxpn-fk-ryi are all in the room with her. states that patient's cognition has been quickly declining since Friday. Although patient has Alzheimer's dementia, states since Friday that she is unable to do ADLs, recall long-term memories, short-term memory has worsened. Due to patient's cognitive changes she is unable to answer questions accurately. states that he does not believe she is in any pain. Exam Narrative: HENMT: Tachy mucous membranes EYES: EOM intact b/l. Peripheral vision not intact. Unable to say how many fingers I was holding up. NECK: no lymphadenopathy RESPIRATORY: clear to auscultation CARDIO: RRR GI: soft, nontender, bowel sounds present SKIN: no rashes EXTREMITIES: no edema, redness or tenderness NEURO: Wmuy-me-uzuo intact. Motor apraxia, visual agnosia, and receptive aphasia. Moderate left-sided bhavana-neglect. No facial drooping. Patient unable to answer questions such as where she was born, where she was, the time of year, unable to follow commands. Patient was able to state her name, her 's name, and her sister's name. Most of my questions were answered with [facility]. Objective Data Vital Signs Vital Signs: Vital Signs - 24 hr 02/09/22 14:13 02/09/22 14:16 02/09/22 14:30 Temperature 98.1 F Pulse Rate 100 98 Respiratory Rate 15 17 Blood Pressure Pulse Oximetry 100 97 Oxygen Delivery 02/09/22 14:45 02/09/22 15:00 02/09/22 16:02 Temperature Pulse Rate 101 H 98 89 Respiratory Rate 25 H 17 18 Blood Pressure Pulse Oximetry 98 97 100 Oxygen Delivery 02/09/22 16:16 02/09/22 16:20 02/09/22 17:36 Temperature Pulse Rate 89 91 89 Respiratory Rate 21 H 20 19 Blood Pressure 123/80 122/78 130/68 Pulse Oximetry Oxygen Delivery 02/09/22 18:27 02/09/22 18:40 02/09/22 18:57 Temperature 98.2 F Pulse Rate 89 89 Respiratory Rate 16 Blood Pressure 124/66 Pulse Oximetry 98 Oxygen Delivery Room Air 02/09/22 19:35 02/09/22 20:30 02/09/22 20:00 Temperature 97.8 F Pulse Rate 92 86 Respiratory Rate 18 Blood Pressure 100/70 Pulse Oximetry 97 97 Oxygen Delivery Room Air 02/10/22 00:00 02/10/22 04:00 02/10/22 04:34 [facility]
[2022-02-10] MEDS: CYANOCOBALAMIN 1,000 MCG TABLET 1000 MCG PO (17:46)
[2022-02-11] VITALS (9 sets, daily range): BP systolic 108–127; BP diastolic 64–80; PULSE 76–106; RESP 16–18; TEMP 36.4–36.7; O2SAT 98–100
--- NOTE | 2022-02-11 | ECHO_ITS ---
Patient Info Name: Nahomy Shaikh Age: 76 years : 1945 Gender: Female Ht: 67 in Wt: 190 lbs BSA: 2.04 m2 HR: 78 bpm BP: 101 / 59 mmHg Technical Quality: Good Exam Date: 02/11/2022 11:25 AM Exam Location: [facility] Pulmonary Exam Room: ICU7 Patient Status: Inpatient Admit Date: 02/10/2022 Staff Ordering Physician: Lisandra Johnson PA-C Associate Project Manager: Lidia Catherine RCS Attending Provider: Karyna Lim DO Referring Physician: Alex COX; Exam Type: CA echo doppler w bubble study Study Info Indications - CVA Complete two-dimensional, color flow and Doppler transthoracic echocardiogram is performed with agitated saline. Complete two-dimensional, color flow and Doppler transthoracic echocardiogram is performed. Contrast/Agitated Saline Contrast/Ag. Saline: Agitated Saline Amount: 20.00 ml Administered By: Saud Davidson FLORENTIN Existing IV Access: Yes IV Access Condition: patent with no signs of infiltration Summary 1. Complete two-dimensional, color flow and Doppler transthoracic echocardiogram is performed. 2. Left ventricular chamber dimension is normal. 3. Left ventricular systolic function is normal, estimated at 65-70%. 4. The left ventricular diastolic function is grade I diastolic dysfunction. 5. E/e' 12 is mildly elevated. 6. Left atrial chamber dimension is mildly enlarged. 7. There is mild aortic valve sclerosis. 8. The mitral valve has globular calcified posterior mitral annulus. 9. There is trace tricuspid valve regurgitation. 10. No pulmonary hypertension, estimated pulmonary arterial systolic pressure is 33 mmHg. Left Ventricle E/e' 12 is mildly elevated. Left ventricular chamber dimension is normal. Left ventricular systolic function is normal, estimated at 65-70%. The left ventricular diastolic function is grade I diastolic dysfunction. Right Ventricle Right ventricular chamber dimension is normal. Right ventricular systolic function is normal. Left Atria Left atrial chamber dimension is mildly enlarged. Right Atria Right atrial chamber dimension is normal. Atrial Septum Agitated saline injection with and without valsalva maneuver opacified right side cardiac chambers without shunt to left side cardiac chambers. Intact interatrial septum visualized by 2D and agitated saline imaging. Aortic Valve The aortic valve is trileaflet. There is mild aortic valve sclerosis. There is no aortic valve stenosis. There is no aortic valve regurgitation. Pulmonic Valve There is no pulmonic regurgitation. Mitral Valve The mitral valve has globular calcified posterior mitral annulus. There is no mitral valve stenosis. There is no mitral valve regurgitation. Tricuspid Valve There is trace tricuspid valve regurgitation. No pulmonary hypertension, estimated pulmonary arterial systolic pressure is 33 mmHg. Pericardium/Pleural There is no pericardial effusion. Inferior Vena Cava Normal inferior vena cava with >50% collapse upon inspiration consistent with normal right atrial pressure, 5 mmHg. Aorta The aortic root size at the sinus of Valsalva is normal. Left Ventricular Outflow Tract Name Value Normal LVOT 2D
[2022-02-11 08:22] LABS: Hematocrit 39.5 % (37.0-47.0); Mean Corpuscular HGB Conc 32.9 g/dl (32-36); Mean Corpuscular Hemoglobin 30.7 pg (26-34); Mean Corpuscular Volume 93.4 fl (80-100); Mean Platelet Volume 8.9 fl (7.4-10.4); Platelet Count Result 297 k/mm3 (150-375); Red Blood Count 4.23 M/mm3 (4.2-5.4); Red Cell Distribution Width 11.9 % (11.5-14.5); White Blood Count 6.6 K/mm3 (4.5-10.0)
[2022-02-11 08:46] LABS: Anion Gap 12 mmol/L (8-16); Blood Urea Nitrogen 12 mg/dL (7-17); Calcium 9.1 mg/dL (8.4-10.2); Carbon Dioxide 28 mmol/L (22-30); Chloride 102 mmol/L (98-107); Estimated CRCL calculation 61 ml/min; Estimated Glomerular Filt Rate > 60; Glucose 96 mg/dL (65-110); Potassium 3.7 mmol/L (3.4-5.0); Sodium 142 mmol/L (137-145)
[2022-02-11] MEDS: VENLAFAXINE HCL XR 75 MG CAP.ER.24H 150 MG PO (09:36)
[2022-02-11] MEDS: lamoTRIgine 100 MG TABLET PO (09:37)
[2022-02-11] MEDS: CYANOCOBALAMIN 1,000 MCG TABLET 1000 MCG PO (09:37)
[2022-02-11] MEDS: ASPIRIN 81 MG ENTERIC TABLET PO (09:37)
[2022-02-11] MEDS: MIRTAZAPINE 15 MG TABLET PO (09:37)
[2022-02-11] MEDS: MEMANTINE 10 MG TABLET PO ×2 (09:37→17:31)
[2022-02-11] MEDS: lamoTRIgine 50 MG TABLET PO (09:37)
[2022-02-11] MEDS: ROSUVASTATIN 10 MG TABLET 20 MG PO (09:37)
[2022-02-11] MEDS: MELOXICAM 7.5 MG TABLET PO (09:37)
--- NOTE | 2022-02-11 13:48 | PM.IMPN ---
Progress Note: A&P Assessment and Plan (1) Cerebrovascular accident: Code(s): I63.9 - Cerebral infarction, unspecified Status: Acute Assessment and Plan: -telemetry monitoring -aspirin 81 mg prescribed -statin changed to Crestor 20 mg -PT OT and speech evaluating patient -neurology following patient -Brain CT showed evidence of a subacute infarction in the right temporoparietal occipital area -MRI: consistent with posterior reversible encephalopathy syndrome (PRES) -CTA brain and carotid: consistent with MRI findings, 0% stenosis of internal carotid arteries -Unable to be sure what exactly is the source for patient's encephalopathy. Patient does not have a history of hypertension. -I discussed MRI and CTA results with patient and her family after speaking with both Dr. Coles and Dr. Sanchez -I called patient's neurologist at [facility] along with coordinator for Alzheimer's clinical trial and I was not able to reach either of them. Plan to reach out to clinical trial coordinator in regards to other participants possibly having similar side effects. (2) Alzheimer disease: Code(s): G30.9 - Alzheimer's disease, unspecified; F02.80 - Dementia in other diseases classified elsewhere, unspecified severity, without behavioral disturbance, psychotic disturbance, mood disturbance, and anxiety Status: Acute Assessment and Plan: -continue home medications (3) Depression with anxiety: Code(s): F41.8 - Other specified anxiety disorders Status: Acute Assessment and Plan: Continue home medications (4) Mixed hyperlipidemia: Code(s): E78.2 - Mixed hyperlipidemia Status: Acute Assessment and Plan: Atorvastatin 20 mg discontinued and Crestor 20 mg added Time Spent With Patient Time with patient: Greater than 35 minutes Subjective Date/time seen: 02/11/22 13:48 Interval history: 76-year-old woman with a history of Alzheimer's dementia, depression and obstructive sleep apnea. Patient seems more alert compared to yesterday patient is alert and oriented to self and place. Patient able to answer more questions today compared to yesterday. Patient denies pain, nausea vomiting, swelling in the extremities, and diarrhea. Although patient is still somewhat confused and an unreliable historian. states that she has no complaints. Patient's and sister both state that they feel as if Nahomy Cleary has improved from yesterday. Exam Narrative: HENMT: Moist mucous membranes EYES: EOM intact b/l. Peripheral vision improved. NECK: no lymphadenopathy RESPIRATORY: clear to auscultation CARDIO: RRR GI: soft, nontender, bowel sounds present SKIN: no rashes EXTREMITIES: no edema, redness or tenderness NEURO: Rbfj-um-nuwx intact. Motor apraxia, visual agnosia, and receptive aphasia. Moderate left-sided bhavana-neglect. No facial drooping. Patient able to answer more my questions compared to yesterday. Patient able to follow some commands. Dsulgr-fo-vrma not intact. Objective Data Vital Signs Vital Signs: Vital Signs - 24 hr 02/10/22 16:00 02/10/22 22:00 02/10/22 20:00 Temperature 98 F 98.0 F Pulse Rate 98 68 68 Respiratory Rate 14 18 18 Blood Pressure 113/67 110/70 Pulse Oximetry 100 100 100 Oxygen Delivery Room Air 02/10/22 20:00 02/11/22 00:00 02/11/22 04:00 Temperature Pulse Rate 78 95 82 Respiratory Rate Blood Pressure Pulse Oximetry Oxygen Delivery 02/11/22 06:00 02/11/22 08:00 02/11/22 12:00 Temperature 98.0 F Pulse Rate 76 98 77 Respiratory Rate 18 Blood Pressure 108/64 Pulse Oximetry 100 Oxygen Delivery Intake/Output Intake/Output: Intake & Output 02/08/22 02/09/22 02/10/22 02/11/22 23:59 23:59 23:59 23:59 Intake Total 1000 480 120 Output Total 1200 1750 Balance -200 -1270 120 Meds/Results Medications: Active Medications Generic Name Dose Route Start Last Admin Trade Name
[2022-02-12] VITALS (9 sets, daily range): BP systolic 114–124; BP diastolic 62–74; PULSE 85–117; RESP 18; TEMP 36.6–36.8; O2SAT 97–99
[2022-02-12 05:40] LABS: Hemoglobin 12.7 g/dL (12.0-15.0); Mean Corpuscular HGB Conc 32.6 g/dl (32-36); Mean Corpuscular Hemoglobin 31.1 pg (26-34); Mean Corpuscular Volume 95.6 fl (80-100); Mean Platelet Volume 8.9 fl (7.4-10.4); Platelet Count Result 278 k/mm3 (150-375); Red Blood Count 4.08 M/mm3 (4.2-5.4); White Blood Count 6.2 K/mm3 (4.5-10.0)
[2022-02-12 05:52] LABS: Anion Gap 7 mmol/L (8-16); Blood Urea Nitrogen 11 mg/dL (7-17); Calcium 8.7 mg/dL (8.4-10.2); Carbon Dioxide 29 mmol/L (22-30); Chloride 107 mmol/L (98-107); Estimated CRCL calculation 69 ml/min; Estimated Glomerular Filt Rate > 60; Glucose 89 mg/dL (65-110); Magnesium 2.2 mg/dL (1.6-2.3); Potassium 3.7 mmol/L (3.4-5.0); Sodium 143 mmol/L (137-145)
[2022-02-12] MEDS: ASPIRIN 81 MG ENTERIC TABLET PO (09:04)
[2022-02-12] MEDS: ROSUVASTATIN 10 MG TABLET 20 MG PO (09:04)
[2022-02-12] MEDS: MEMANTINE 10 MG TABLET PO ×2 (09:05→17:19)
[2022-02-12] MEDS: MIRTAZAPINE 15 MG TABLET PO (09:05)
[2022-02-12] MEDS: CYANOCOBALAMIN 1,000 MCG TABLET 1000 MCG PO (09:05)
[2022-02-12] MEDS: VENLAFAXINE HCL XR 75 MG CAP.ER.24H 150 MG PO (09:05)
[2022-02-12] MEDS: lamoTRIgine 100 MG TABLET PO (09:05)
[2022-02-12] MEDS: lamoTRIgine 50 MG TABLET PO (09:05)
[2022-02-12] MEDS: MELOXICAM 7.5 MG TABLET PO (09:05)
--- NOTE | 2022-02-12 14:11 | PM.IMPN ---
Progress Note: A&P Assessment and Plan (1) Posterior reversible encephalopathy syndrome: Code(s): I67.83 - Posterior reversible encephalopathy syndrome Status: Acute Assessment and Plan: -telemetry monitoring -aspirin 81 mg prescribed -statin changed to Crestor 20 mg -PT OT and speech evaluating patient -neurology following patient -Brain CT showed evidence of a subacute infarction in the right temporoparietal occipital area -MRI: consistent with posterior reversible encephalopathy syndrome (PRES) -CTA brain and carotid: consistent with MRI findings, 0% stenosis of internal carotid arteries -Unable to be sure what exactly is the source for patient's encephalopathy. Patient does not have a history of hypertension. -I discussed MRI and CTA results with patient and her family after speaking with both Dr. Coles and Dr. Sanchez -I called patient's neurologist at [facility] along with coordinator for Alzheimer's clinical trial both were informed of the patient's condition. I tried making an appointment for the patient for follow-up neurology today and have not heard back from the office. (2) Cerebrovascular accident: Code(s): I63.9 - Cerebral infarction, unspecified Status: Acute Assessment and Plan: see above (3) Alzheimer disease: Code(s): G30.9 - Alzheimer's disease, unspecified; F02.80 - Dementia in other diseases classified elsewhere, unspecified severity, without behavioral disturbance, psychotic disturbance, mood disturbance, and anxiety Status: Acute Assessment and Plan: -continue home medications (4) Depression with anxiety: Code(s): F41.8 - Other specified anxiety disorders Status: Acute Assessment and Plan: Continue home medications (5) Mixed hyperlipidemia: Code(s): E78.2 - Mixed hyperlipidemia Status: Acute Assessment and Plan: Atorvastatin 20 mg discontinued and Crestor 20 mg added Time Spent With Patient Time with patient: Greater than 35 minutes Subjective Date/time seen: 02/12/22 14:11 Interval history: 76-year-old woman with history of Alzheimer's dementia presented to the ER with altered mental status that has been getting progressively worse over the past week. Patient's MRI and CTA revealed posterior reversible encephalopathy syndrome. I have reached out to patient's clinical trial for Alzheimer's dementia and her neurologist patient 15. The clinical trial facility was unsure whether PRES was from experimental medication or not. Dr. Coles and Dr. Magana both consulted on this patient and have agree for discharge and having her follow-up with her neurologist on outpatient basis. Patient denies any chest pain, shortness a breath, swelling in her extremities, abdominal pain, nausea, vomiting, and diarrhea. Patient is due to be discharged to [facility]. patient cannot be accepted until tomorrow, she will be staying another night awaiting placement. Exam Narrative: HENMT: Moist mucous membranes EYES: EOM intact b/l. Peripheral vision improved. NECK: no lymphadenopathy RESPIRATORY: clear to auscultation CARDIO: RRR GI: soft, nontender, bowel sounds present SKIN: no rashes EXTREMITIES: no edema, redness or tenderness NEURO: Qjdh-nt-brok intact. Motor apraxia, visual agnosia, and receptive aphasia. Moderate left-sided bhavana-neglect. No facial drooping. Patient Unable to follow some commands. Bnkdfh-fh-opbs not intact. Patient oriented to self. Objective Data Vital Signs Vital Signs: Vital Signs - 24 hr 02/11/22 16:00 02/11/22 21:58 02/11/22 21:00 Temperature 97.5 F L Pulse Rate 106 H 100 102 H Respiratory Rate 16 Blood Pressure 126/76 Pulse Oximetry 98 Oxygen Delivery 02/11/22 21:00 02/12/22 00:00 02/12/22 04:00 Temperature Pulse Rate 93 94 91 Respiratory Rate 16 Blood Pressure Pulse Oximetry 98 Oxygen Delivery Room Air 02/12/22 06:00 02/12/22 08:00 02/12/22 12
--- NOTE | 2022-02-12 15:32 | PCPTNOTE ---
Attempted to see patient for Physical Therapy this date, however patient declined to do therapy today. Patient's family was in the room. RN notified. Will plan to continue treatment per plan of care.
[2022-02-13] VITALS (7 sets, daily range): BP systolic 118–129; BP diastolic 72–78; PULSE 80–106; RESP 18–20; TEMP 36.3–36.8; O2SAT 97–98
[2022-02-13] MEDS: VENLAFAXINE HCL XR 75 MG CAP.ER.24H 150 MG PO (08:49)
[2022-02-13] MEDS: MIRTAZAPINE 15 MG TABLET PO (08:49)
[2022-02-13] MEDS: MELOXICAM 7.5 MG TABLET PO (08:49)
[2022-02-13] MEDS: MEMANTINE 10 MG TABLET PO (08:49)
[2022-02-13] MEDS: lamoTRIgine 100 MG TABLET PO (08:49)
[2022-02-13] MEDS: lamoTRIgine 50 MG TABLET PO (08:49)
[2022-02-13] MEDS: CYANOCOBALAMIN 1,000 MCG TABLET 1000 MCG PO (08:49)
[2022-02-13] MEDS: ASPIRIN 81 MG ENTERIC TABLET PO (08:49)
[2022-02-13] MEDS: ROSUVASTATIN 10 MG TABLET 20 MG PO (08:49)
--- NOTE | 2022-02-13 13:06 | PCSTNOTE ---
Patient in restroom for lengthy period of time; will attempt ST later or tomorrow.
--- NOTE | 2022-02-13 15:59 | PM.DS ---
DS: Admitting Diagnosis Discharge Date 02/13/2022 1600 Admitting Diagnosis Cerebrovascular accident Alzheimer disease Depression with anxiety Mixed hyperlipidemia DS: Discharge Diagnosis Discharge Diagnosis (1) Posterior reversible encephalopathy syndrome: Code(s): I67.83 - Posterior reversible encephalopathy syndrome Status: Acute (2) Cerebrovascular accident: Code(s): I63.9 - Cerebral infarction, unspecified Status: Acute (3) Alzheimer disease: Code(s): G30.9 - Alzheimer's disease, unspecified; F02.80 - Dementia in other diseases classified elsewhere, unspecified severity, without behavioral disturbance, psychotic disturbance, mood disturbance, and anxiety Status: Chronic (4) Depression with anxiety: Code(s): F41.8 - Other specified anxiety disorders Status: Chronic (5) Mixed hyperlipidemia: Code(s): E78.2 - Mixed hyperlipidemia Status: Chronic DS: Summary Hospital Course Reason for hospitalization: confusion Hospital Course: Nahomy Shaikh is a 76-year-old female with dementia, hypertension, and dyslipidemia who presented to the emergency department, from home, for evaluation of confusion. The patient appeared to suffer from pretty significant short-term memory loss and while she was able to provide some history, some of her medical history was supplemented via a review of her electronic medical records, as well as information provided by her spouse. She is followed by Neurology at [facility] and is currently enrolled in a clinical trial in which she received infusion 3 weeks ago. There were no obvious, immediate side effects and she has been doing well up until the last 3 days at which time she seems to have gone down hill. For instance she seemed to be forgetting how to do everyday activities such as tying her shoes and getting dressed.? Her gait has been shuffling and she is needing assistance when walking. In the emergency department her vital signs were stable and labs were unremarkable. Head CT showed diminished attenuation in the right temporoparietal occipital area likely due to subacute infarcts and she was admitted in this setting for further workup. She denied headache, vertigo, focal weakness, paresthesias, visual changes, facial droop, difficulty speaking, difficulty swallowing. No c/o chest pain, shortness a breath, nausea, or vomiting. She does not think she has a history of stroke, carotid artery disease, or dysrhythmia. Posterior reversible encephalopathy syndrome Brain MRI showed Extensive white matter disease with a posterior predominance with marked worsening from 05/30/2020, consistent with posterior reversible encephalopathy syndrome (PRES). Neurology was consulted and it was undetermined the exact source for patient's encephalopathy.?Attempts were made to contact the patient's Neurologist at [facility] alone with the coordinator for the Alzheimer's clinical trial to inform them of the patient's condition, but reportedly could not be reached. The patient's imaging was placed on a disc and the patient's family was instructed to contacted her Neurologist as soon as possible. She was monitored on telemetry and continued on medical therapy for subacute strokes as below. Cerebrovascular accident She presented to the ED with alterations in mentation. Neurology was consulted for assistance in management. CT head showed evidence of a subacute infarction in the right temporoparietal occipital area. Brain MRI was concerning for posterior reversible encephalopathy syndrome (PRES). CTA brain and carotid: consistent with MRI findings, 0% stenosis of internal carotid arteries. She was treated with aspirin 81 mg PO daily and statin therapy was changed from lipitor to crestor 20 mg daily. PT/OT and speech therapy were consulted and SNF was recommended. No dysphagia was noted. She was monitored on telemetry and no arrhythmia was noted. The patient wa
--- NOTE | 2022-02-13 17:47 | PC.NURSE ---
Pt was supposed to be discharged to [facility] this afternoon. Pt family has been asking multiple questions all day long. When being notified that patient was being discharged family changed their minds and asked to be sent to [place]. I informed them that if we did that she could be sitting here for days waiting for a bed. Explained that they were better off letting her discharge and just making an appt with her primary neurologist as instructed by our medical staff. Family was insistent that she go to [place]. Ok with Neuro for her to be discharged and take her to [place] ER where her primary neuro will meet her there.
== END 2022-02-13 17:00 | disposition short-term general hospital (02) | DRG 64 ==
LOC: ANHED 14:40 → ANH3MED 16:56
PROVIDERS: Internal Medicine Critical Care Medicine; Physician Assistant; Admitting Provider Student in an Organized Health Care Education/Training Program; Emergency Provider General Practice; PCP Family Medicine; Visit Provider Nurse Practitioner Family
DX: I63.9 Cerebral infarction, unspecified (principal); I67.83 Posterior reversible encephalopathy syndrome; G30.9 Alzheimer's disease, unspecified; F02.80 Dementia in other diseases classified elsewhere, unspecified severity, without behavioral disturbance, psychotic disturbance, mood disturbance, and anxiety; R47.01 Aphasia; R48.2 Apraxia; R48.3 Visual agnosia; I10 Essential (primary) hypertension; R29.702 NIHSS score 2; F41.8 Other specified anxiety disorders; E78.2 Mixed hyperlipidemia; G47.33 Obstructive sleep apnea (adult) (pediatric); Z79.899 Other long term (current) drug therapy; Z85.528 Personal history of other malignant neoplasm of kidney; Z85.828 Personal history of other malignant neoplasm of skin
CPT/HCPCS: 36415; 70450; 70496; 70498; 70553; 71045; 80048; 80053; 80061; 80307; 81001; 83735; 84484; 85025; 85027; 85610; 85730; 92507; 92523; 93005; 93306; 96360; 96375; 97110; 97161; 97165; 97530; 97535; 99285; A9270; A9577; G0378; J7030; Q9967

== ENCOUNTER 2022-06-17 13:04 | Outpatient (CLI) | payer MEDICARE, SELFPAY ==
--- NOTE | ~2022-06-17 | XR_ITS ---
EXAMINATION: XR lg joint inject/asp w image DATE: 06/17/2022 14:17 INDICATION: Primary osteoarthritis of the right shoulder with right shoulder pain TECHNIQUE: A time-out was performed to verify the patient's name, date of , and procedure to b e performed. The procedure including the risks, benefits, and alternatives was discussed with the pat ient. Risks discussed included bleeding and infection. The patient understood the risks and agreed to proceed. The skin overlying the rotator cuff interval of the right glenohumeral joint was prepped a nd draped in usual sterile fashion. Anesthetic was administered with 1% lidocaine subcutaneously. A 22 G needle was advanced under fluoroscopic guidance into the joint. Injection of 2 mL of Omnipaque 240 confirmed intra-articular position of the needle. Subsequently, injectate consisting of 2.5 mL of a 4:1 mixture of 1% lidocaine: 40 mg/mL Kenalog for a total dosage of 20 mg Kenalog was instilled. Washout of contrast was seen confirming intra-articular administration. The needle was removed and t he entry site was cleaned and dressed. There were no immediate complications. Fluoroscopy exposure t sarita was 0.1 minutes. The total number of images was 2. FINDINGS: Severe osteoarthritis at the right glenohumeral joint. Real-time fluoroscopy demonstrates t he needle and contrast in the right glenohumeral joint. Patient's pain prior to procedure:5/10. Lydia ent's pain following the procedure: 0/10. IMPRESSION: 1. Successful right glenohumeral joint injection of local anesthetic and steroid with decrease in the patient's presenting pain. Reviewed, dictated and finalized at location A. IMPRESSION: 1. Successful right glenohumeral joint injection of local anesthetic and steroi d with decrease in the patient's presenting pain.
== END 2022-06-17 13:05 | disposition home or self-care (01) ==
PROVIDERS: PCP Family Medicine; Visit Provider Orthopaedic Surgery
DX: M19.011 Primary osteoarthritis, right shoulder (principal); M19.012 Primary osteoarthritis, left shoulder
CPT/HCPCS: 20610; 77002; J3301; Q9966

== ENCOUNTER 2023-02-27 14:47 | Emergency (ER) | payer MEDICARE, SELFPAY ==
[2023-02-27 15:12] VITALS: BP 116/67; PULSE 86; RESP 16; TEMP 36.8; O2SAT 97
--- NOTE | 2023-02-27 15:28 | ED.GENADULT ---
HPI - General Adult General Chief complaint: Dental/Oral Stated complaint: Infection in mouth Time Seen by Provider: 02/27/23 15:28 Source: patient, RN notes reviewed and old records reviewed Mode of arrival: ambulatory Limitations: no limitations History of Present Illness HPI narrative: 77-year-old female presents to the [facility] with concerns of an infection in her mouth. Patient reports just the tip of her tongue hurts. Has been states that she has not been eating or drinking very much due to the pain. Has been applying a [id number] numbing medication like Ambesol Patient has a history of Alzheimer's. Has an appointment with primary care provider at the end of February Related Data Home Medications Medication Instructions Recorded Confirmed lamotrigine 150 mg tablet 150 mg PO DAILY 11/04/19 02/27/23 venlafaxine 150 mg tablet,extended 150 mg PO DAILY 10/26/20 02/27/23 release 24 hr cholecalciferol (vitamin D3) 25 25 mcg PO DAILY 03/14/22 02/27/23 mcg (1,000 unit) capsule venlafaxine 75 mg tablet 75 mg PO DAILY 03/14/22 02/27/23 mecobalamin (vitamin B12) 1,000 1,000 mcg PO DAILY 06/05/22 02/27/23 mcg chewable tablet pyridoxine (vitamin B6) 200 mg 200 mg PO DAILY 06/05/22 02/27/23 tablet,extended release memantine 5 mg tablet 5 mg PO DAILY 10/17/22 02/27/23 Allergies Allergy/AdvReac Type Severity Reaction Status Date / Time No Known Drug Allergies Allergy Mild Unknown Verified 02/27/23 15:05 Review of Systems Review of Systems: All systems reviewed & are unremarkable except as noted in HPI and below Constitutional: Constitutional: Reports no additional constitutional complaints Eyes: Eyes: Reports no additional eye complaints ENT: Reports as per HPI Cardiovascular: Cardiovascular: Reports no additional cardiovascular complaints, Denies chest pain and Denies dyspnea Respiratory: Respiratory: Reports no additional respiratory complaints, Denies chest congestion, Denies cough and Denies dyspnea Gastrointestinal: Gastrointestinal: Reports no additional gastrointestinal complaints, Denies abdominal pain, Denies nausea and Denies vomiting Musculoskeletal: Musculoskeletal: Reports no additional musculoskeletal complaints Integumentary/Breasts: Skin/Breast: Reports system reviewed and no additional complaints, except as docu Neurologic: Reports system reviewed and no additional complaints, except as documented Psychiatric: Psychiatric: Reports no additional psychiatric complaints Allergic/Immunologic: Allergic/Immunologic: Reports no additional allergic/immunologic complaints [facility] Past Medical History Medical History Acquired leg length discrepancy Alzheimer disease neuro 6. 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 contributes to constipation issues Ventral hernia Vitamin B12 deficiency Wears glasses Surgical History Surgical History 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 History of breast biopsy (~2006) benign History of knee replacement x 2 Hx of cholecystectomy (~1994) S/p nephrectomy 02-15-19/ right lap nephrectomy/ right renal cell cancer Family History Family History Mother Diabetes mellitus Depression Dementia Hyperlipidemia
== END 2023-02-27 15:44 | disposition home or self-care (01) ==
PROVIDERS: Emergency Provider Nurse Practitioner; PCP Family Medicine
DX: K14.6 Glossodynia (principal); G30.9 Alzheimer's disease, unspecified; F02.80 Dementia in other diseases classified elsewhere, unspecified severity, without behavioral disturbance, psychotic disturbance, mood disturbance, and anxiety; Z86.73 Personal history of transient ischemic attack (TIA), and cerebral infarction without residual deficits; E78.2 Mixed hyperlipidemia; M19.012 Primary osteoarthritis, left shoulder; M19.011 Primary osteoarthritis, right shoulder; Z85.828 Personal history of other malignant neoplasm of skin; Z85.528 Personal history of other malignant neoplasm of kidney; Z90.5 Acquired absence of kidney; E53.8 Deficiency of other specified B group vitamins
CPT/HCPCS: 99213; G0463

== ENCOUNTER 2023-03-21 02:32 | Day surgery (SDC) | payer MEDICARE, SELFPAY ==
[2023-03-20 12:46] VITALS: BMI 24.2
--- NOTE | 2023-03-21 10:08 | PM.HPGS ---
History of Present Illness History of Present Illness Consent: Risks, benefits, and alternatives have been discussed and questions answered. Patient agrees to proceed with procedure. Chief complaint: Dysphagia Narrative: Nahomy Shaikh is a 77 year old female with difficulty swallowing. 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 contributes to constipation issues Ventral hernia Vitamin B12 deficiency Wears glasses Surgical History Surgical History 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 History of breast biopsy (~2006) benign History of knee replacement x 2 Hx of cholecystectomy (~1994) S/p nephrectomy 02-15-19/ right lap nephrectomy/ right renal cell cancer Family History Family History Mother Diabetes mellitus Depression Dementia Hyperlipidemia Father Hypertension Heart disease Cancer of kidney Mitral valve prolapse Anxiety Hyperlipidemia Sibling Bone cancer Other Family history of arthritis Family history of glaucoma Family history of malignant neoplasm Social History Social History Social History: Surrogate medical decision maker: Abdoul Shaikh, spouse. Code status: Full code. Smoking status: Never smoker Alcohol intake: current Substance use: never Substance use type: does not use Lack of Transportation: No Lack of Food: Never True Current Housing: I Have Housing Concerned About Future Housing: No Difficulty Paying Gas/Electric Bills: No Difficulty Paying for Meds: No Currently Unemployed: No Education: Master's Degree or Higher Difficulty w/ Childcare or Family Care: No Living arrangements: with family Additional living arrangements comments: with Occupation/Education: retired Spiritual care concerns: No Meds Home Medications and Allergies Home Medications Medication Instructions Recorded Confirmed Type lamotrigine 150 mg tablet 300 mg PO HS 11/04/19 03/20/23 History venlafaxine 150 mg tablet,extended 150 mg PO QAM 10/26/20 03/20/23 History release 24 hr cholecalciferol (vitamin D3) 25 25 mcg PO DAILY 03/14/22 03/20/23 History mcg (1,000 unit) capsule venlafaxine 75 mg tablet 75 mg PO QPM 03/14/22 03/20/23 History mecobalamin (vitamin B12) 1,000 1,000 mcg PO DAILY 06/05/22 03/20/23 History mcg chewable tablet pyridoxine (vitamin B6) 200 mg 200 mg PO DAILY 06/05/22 03/20/23 History tablet,extended release mirabegron 25 mg tablet,extended 25 mg PO DAILY #30 tabs 09/27/22 03/20/23 Rx release 24 hr (Myrbetriq) memantine 5 mg tablet 5 mg PO BID 10/17/22 03/20/23 History meloxicam 7.5 mg tablet 7.5 mg PO DAILY #90 tabs 12/13/22 03/20/23 Rx atorvastatin 20 mg tablet 20 mg PO DAILY #90 tabs 01/03/23 03/20/23 Rx Magic Mouthwash 50 mL suspension 5 ml PO TID PRN mouth pain #240 mL 02/27/23 03/20/23 Rx donepezil 10 mg tablet 10 mg PO HS 03/05/23 03/20/23 History Allergies Allergy/AdvReac Type Erika
[2023-03-21 10:12] VITALS: BMI 23.6
--- NOTE | 2023-03-21 10:12 | WPDANESEPPF ---
Anes - Initial Pre Proc Eval Procedure: Operation Date: 03/21/23 11:00 Proposed Procedures p Esophagogastroduodenoscopy - Natalio Spencer MD Date/Time: 03/21/23 10:12 Surgeon: Natalio Spencer MD Pre Op Diagnosis: Dysphagia Patient Data Age: 77 Gender: F Height: 1.65 m Weight: 66 kg Allergies Allergy/AdvReac Type Severity Reaction Status Date / Time No Known Drug Allergies Allergy Mild Unknown Verified 03/21/23 10:10 Home Medications Medication Instructions Recorded Confirmed Type lamotrigine 150 mg tablet 300 mg PO HS 11/04/19 03/21/23 History venlafaxine 150 mg tablet,extended 150 mg PO QAM 10/26/20 03/21/23 History release 24 hr cholecalciferol (vitamin D3) 25 25 mcg PO DAILY 03/14/22 03/21/23 History mcg (1,000 unit) capsule venlafaxine 75 mg tablet 75 mg PO QPM 03/14/22 03/21/23 History mecobalamin (vitamin B12) 1,000 1,000 mcg PO DAILY 06/05/22 03/21/23 History mcg chewable tablet pyridoxine (vitamin B6) 200 mg 200 mg PO DAILY 06/05/22 03/21/23 History tablet,extended release mirabegron 25 mg tablet,extended 25 mg PO DAILY #30 tabs 09/27/22 03/21/23 Rx release 24 hr (Myrbetriq) memantine 5 mg tablet 5 mg PO BID 10/17/22 03/21/23 History meloxicam 7.5 mg tablet 7.5 mg PO DAILY #90 tabs 12/13/22 03/21/23 Rx atorvastatin 20 mg tablet 20 mg PO DAILY #90 tabs 01/03/23 03/21/23 Rx Magic Mouthwash 50 mL suspension 5 ml PO TID PRN mouth pain #240 mL 02/27/23 03/21/23 Rx donepezil 10 mg tablet 10 mg PO HS 03/05/23 03/21/23 History Patient hx anesthesia problems: none Family hx anesthesia problems: none Results Review: All pre-operative results and documents have been reviewed as part of the pre-operative evaluation. [facility] Past Medical History Medical History (Updated 03/21/23 @ 10:26 by Zach Gray DO) Acquired leg length discrepancy Alzheimer disease neuro 6 stable/ no changes in management Cerebrovascular accident patient denies Cervical polyp 2020 benign Cystocele with rectocele Depression with anxiety Hallux valgus with bunions (~2005) Hammertoe History of basal cell carcinoma (~1993) History of renal carcinoma right nephrectomy 2019/ clear cell carcinoma Increased urinary frequency Meniere disease Mixed hyperlipidemia Obesity Obstructive sleep apnea 1.4.22 split night: mild to moderate jojo. 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 contributes to constipation issues Ventral hernia Vitamin B12 deficiency Wears glasses Surgical History Surgical History 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 History of breast biopsy (~2006) benign History of knee replacement x 2 Hx of cholecystectomy (~1994) S/p nephrectomy 02-15-19/ right lap nephrectomy/ right renal cell cancer Family History Family History Mother Diabetes mellitus Depression Dementia Hyperlipidemia Father Hypertension Heart disease Cancer of kidney Mitral valve prolapse Anxiety Hyperlipidemia Sibling Bone cancer Other Family history of arthritis Family history of glaucoma Family history of malignant neoplasm Social History Social History Social History: Surrogate medical decision maker: Abdoul Briceñorobert, spouse. Code status: Full code. Smoking status: Never smoker Alcohol intake: current Substance use: never Substance use type: does not use Lack of Transportation: No Lack of Food: Never True Current Housing: I Have Housing Concerned About Future Housing: No Difficulty Paying Gas/Electric Bills: No Difficulty Paying for Meds: No Currently Unemployed: No Education: Master's Degree or Higher Difficulty w/ Childcare or
[2023-03-21 10:14] VITALS: BP 112/71; PULSE 85; RESP 16; TEMP 36.4; O2SAT 98
[2023-03-21] MEDS: LACTATED RINGERS 1,000 ML 150 ML IV CONT (10:27)
[2023-03-21 11:04] VITALS: BP 138/98; PULSE 76; RESP 18; O2SAT 97
[2023-03-21 11:14] VITALS: BP 110/66; PULSE 74; RESP 18; O2SAT 99
[2023-03-21 11:24] VITALS: BP 107/72; PULSE 65; RESP 18; O2SAT 100
== END 2023-03-21 11:34 | disposition home or self-care (01) ==
PROVIDERS: PCP Family Medicine; Visit Provider Internal Medicine Gastroenterology
PROC: 0DJ08ZZ Inspection of Upper Intestinal Tract, Via Natural or Artificial Opening Endoscopic (ICD-10-PCS; CPT 43235; principal; 2023-03-21 11:00)
DX: K21.9 Gastro-esophageal reflux disease without esophagitis (principal); K44.9 Diaphragmatic hernia without obstruction or gangrene; G30.9 Alzheimer's disease, unspecified; F02.80 Dementia in other diseases classified elsewhere, unspecified severity, without behavioral disturbance, psychotic disturbance, mood disturbance, and anxiety; F41.8 Other specified anxiety disorders; E78.2 Mixed hyperlipidemia; G47.33 Obstructive sleep apnea (adult) (pediatric); E53.8 Deficiency of other specified B group vitamins; Z90.5 Acquired absence of kidney; Z85.528 Personal history of other malignant neoplasm of kidney
CPT/HCPCS: 43235; J2704; J7120

== ENCOUNTER 2023-04-08 08:21 | Outpatient (CLI) | payer MEDICARE, SELFPAY ==
--- NOTE | ~2023-04-08 | XR_ITS ---
EXAMINATION: XR barium swallow modified DATE: 04/08/2023 09:14 INDICATION: Oropharyngeal dysphagia. TECHNIQUE: The patient was given barium-containing material of multiple consistencies to swallow by t amelie speech pathologist while I performed fluoroscopy. Fluoroscopy exposure time was 1.5 minutes. The n umber of fluoroscopy images saved to the PACS was 1. Dose-area product was 1.093 Gy-cm^2. FINDINGS: The oral stage, pharyngeal stage, and cervical/esophageal stage of the swallow are normal. IMPRESSION: 1. Normal modified barium swallow. 2. Please refer to the speech therapy report for recommendations. Reviewed, dictated and finalized at location A. [facility]
--- NOTE | 2023-04-08 13:38 | REHSTMBS ---
Assessment and note entered by Akiko Hammer, NETWORK MANAGER Modified Barium Swallow Evaluation Feeding Type Recommended Oral Food Consistency Regular, Level 7 Liquid Consistency Thin (0) ST Clinical Summary MODIFIED BARIUM SWALLOW STUDY This patient was seen for a Modified Barium Swallow study at the request of her physician, Dr. Spencer. Patient reports that for a long time, she has felt the need to gag or spit up material in the throat after swallowing and that she has found that she has to manipulate/masticate both foods and liquids excessively in order to swallow them on the left side in order to avoid reaching the right side of her throat or she can expect to gag or spit after swallowing. At the same time, when asked if doing this (moving food/ liquid to the left) is working, why does she continue to feel the need to gag or spit after swallowing, like she was today on the Modified Barium Swallow study. She was unable to explain why she continues to attempt this compensatory strategy in spite of the fact that it does not work. At end of evaluation, she did admit to a history of gastroesophageal reflux. The patient was viewed in the lateral position and then the anterior-posterior position to the level of C5/C6. She was presented with uncontrolled thin liquid contrast medium per cup and per straw, pudding mixed with semi-solid contrast medium, and then den cracker pieces coated with the semi-solid mixture. Patient exhibited excessive manipulation time for all consistencies, which she admitted later was to facilitate moving the material to the left in order to avoid the right side while swallowing. She then exhibited quick swallows with no significant pharyngeal residue after swallowing. In the A-P position, patient was presented with uncontrolled thin liquid per straw and requested to swallow. She elicited two quick swallows with symmetrical movement through the pharynx and upper esophagus and with no residue remaining after the completion of the swallows. Testing was terminated. Results indicate this patient's swallowing skills from the oral stage through the pharyngeal stage
== END 2023-04-08 08:22 | disposition home or self-care (01) ==
PROVIDERS: PCP Family Medicine; Visit Provider Internal Medicine Gastroenterology
DX: R13.10 Dysphagia, unspecified (principal)
CPT/HCPCS: 92611

== ENCOUNTER 2024-06-23 12:43 | Outpatient (CLI) | payer MEDICARE, SELFPAY ==
--- NOTE | ~2024-06-23 | US_ITS ---
EXAMINATION:US venous doppler LE RT INDICATION:Leg pain and swelling TECHNIQUE: Multiple grayscale, color flow and Doppler images of the right lower extremity deep venous systems were obtained and reviewed. COMPARISON:No prior studies for comparison. FINDINGS: The common femoral, superficial femoral and popliteal veins demonstrate normal respiratory variation, augmentation and compressibility. Color flow is also seen within the posterior tibial, pe roneal, greater saphenous and profunda veins. IMPRESSION: 1: No lower extremity deep venous thrombosis. Reviewed, dictated and finalized at location A.
--- OUTSIDE RECORDS SUMMARY | 2024-06-23 13:45 | XMS_ITS | Clinical Summary ---
Author Organization [facility] Address [address] [address] Care Team Providers Care Flexible Babysitter Name Role Phone Jalen Peters MD Unavailable [phone] Deven Tao MD Primary Care Provider [phone] Jalen Peters MD Unavailable [phone] Source Comments [facility],non-owned Affiliates and Associated Physician Practices is amultiple site organization consisting of ambulatory clinics and hospital sitesin [place], [place], [place] and [place]. This disclosure is being madepursuant to the Care Everywhere program and may not contain all information available regarding this patient. Last updated 17.[facility] Allergies No known active allergies Medications * Be aware that medications may not be up to date on this document. Alwaysverify current medications with the patient. Medication Sig Dispensed Refills Start Date End Date Status lovastatin (MEVACOR) 20 MG tablet Take 20 mg by mouth at bedtime. Active calcium carbonate (CALTRATE) TABS Take 300 mg by mouth once daily. Active meloxicam (MOBIC) 7.5 MG tablet Take 1 Tab by mouth 2 times daily. 60 Tab 5 10/05/2013 Active Active Problems Problem Noted Date Diagnosed Date Osteoarthrosis involving lower leg 10/05/2013 Overview (06/24/2015): 2015 IMO Up[employer] Social History Tobacco Use Types Packs/Day Years Used Date Smoking Tobacco: Never Alcohol Use Standard Drinks/Week Comments Not Asked 0 (1 standard drink = 0.6 oz pur e alcohol) Sex and Gender Information Value Date Recorded Sex Assigned at Not on file Gender Identity Not on file Sexual Orientation Not on file Last Filed Vital Signs Vital Sign Reading Time Taken Comments Blood Pressure 125/75 07/27/2014 9:04 AM CDT Pulse 106 07/27/2014 9:04 AM CDT Temperature - - Respiratory Rate 20 07/27/2014 9:04 AM CDT Oxygen Saturation - - Inhaled Oxygen Concentration - - Weight 105.9 kg (233 lb 8 oz) 07/27/2014 9:04 AM CDT Height 165.1 cm (5' 5 ) 07/27/2014 9:04 AM CDT Body Mass Index 38.86 07/27/2014 9:04 AM CDT Plan of Treatment Health Maintenance Due Date Last Done Comments BONE DENSITY TESTING 1945 MEDICARE AWV 12 MONTHS 1945 HEPATITIS C SCREENING 09/20/1965 DTAP/TDAP/TD VACCINES (1 - Tdap) 09/24/1966 PNEUMOCOCCAL VACCINE 50+ (1 of 1 - PCV) 09/24/1997 ZOSTER VACCINE (1 of 2) 09/24/1997 Respiratory Syncytial Virus (RSV) Vaccine Pt: or over 60 yrs (1 - 1-dose 75+ series) 09/24/2022 COVID-19 VACCINE (1 - 2023-2 5 season) 2023 INFLUENZA VACCINE (#1) 2023 9, 12/29/2013 DEPRESSION SCREENING 03/31/2024 HEPATITIS B VACCINE Aged Out No longe r eligible based on patient's age to complete this topic HIB VACCINE Aged Out No longer eligi ble based on patient's age to complete this topic HPV VACCINE Aged Out No longer eligi ble based on patient's age to complete this topic MENINGOCOCCAL (Group B) VACCINE SHARED DECISION-MAKING Aged Out No longer eligible based on patient's age to complete this topic MENINGOCOCCAL GROUPS A/C/Y/W VACCINE Aged Out No longer eligible b ased on patient's age to complete this topic Care Teams Flexible Babysitter Relationship Specialty Start Date End Date Deven Tao MD [address] [place] [address] PCP - General Family Medicine 10/05/13 [place] [id number] [place] [id number] Orthopedic Surgery 10/05/13 [place] [id number] [place] [address] Orthopedic Surgery 10/05/13
--- OUTSIDE RECORDS SUMMARY | 2024-06-23 13:45 | XMS_ITS | Encounter Summary ---
Author Organization [facility] Address [address] [place] [address] Care Team Providers Care Polytechnic Registrar Name Role Phone Dorothy Tao MD Primary Care Provider + Izzy Mosqueda RN Unavailable Unavailable Abel Groves MD Unavailable [phone] Rafaela Stroud MD Unavailable Encounter Details Date Type Department Care Team (Late st Contact Info) Description 11/06/2017 Documentation [facility] Case Management [id number] [place] [address] Lauren Lan RN Social History Tobacco Use Types Packs/Day Years Used Date Smoking Tobacco: Never Smokeless Tobacco: Never Alcohol Use Standard Drinks/Week Comments Yes 0 (1 standard drink = 0.6 oz pur e alcohol) rare Comments No Sex and Gender Information Value Date Recorded Sex Assigned at Not on file Legal Sex Female 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 Gender Identity Female 2020 5:16 PM CDT Sexual Orientation Not on file documented as of this encounter Plan of Treatment Not on file documented as of this encounter Visit Diagnoses Not on filedocumented in this encounter Care Teams Polytechnic Registrar Relationship Specialty Start Date End Date Dorothy Tao MD PCP - General 06/17/17 Hannum, Izzy S., RN [facility] Customs Clearing Agent 10/29/17 [place] [address] [place] [id number] Consulting Physician Urology 02/08/19 Rafaela Stroud MD [address] [place] [address] Referring Physician Neurology 09/26/20 documented as of this encounter
--- OUTSIDE RECORDS SUMMARY | 2024-06-23 13:45 | XMS_ITS | Clinical Summary ---
Author Organization [facility] Address [address] [place] [address] Care Team Providers Care Flue Gas Analyst Name Role Phone Dorothy Tao MD Primary Care Provider + Izzy Mosqueda RN Unavailable Unavailable Abel Groves MD Unavailable [phone] Rafaela Stroud MD Unavailable Allergies No known active allergies Medications cholecalciferol (VITAMIN D-3) 1,000 unit capsule Take 1 capsule (1,000 Units total) by mouth daily 30 capsule 02/20/2022 Active ARIPiprazole (ABILIFY) 1 mg/mL mL 06/30/2023 Active rivastigmine (EXELON) 9.5 mg/[address] 9.5 mg on the skin daily 30 patch 11 01/22/2024 5 Active Active Problems Problem Noted Date Diagnosed Date Vascular dementia with behavior disturbance 12/30 Restlessness and agitation 07/10/2023 Assessment & Plan (07/10/2023 11:17 AM CDT): Continue aripiprazole 5 mg daily Follow up with Dr. Tomlinson in Psychiatry regarding next steps (she was taking lamotrigine, venlafaxine) in the past until about March when all the agitation started. She had an appointment with Dr. Tomlinson last week but missed. Caregiver stress 07/10/2023 Abnormal magnetic resonance imaging of brain due to amyloid beta peptide with edema or effusion 02/13/2022 Late onset Alzheimer's disea se without behavioral disturbance 09/26/2020 Overview (07/10/2023): She is followed by Psychiatry at [facility], Dr. Stroud. She did participate in a clinical trial for Joanna Remternetug through [employer]. Hospitalized 02/13/2022-02/19/2022 for rapidly progressive changes in cognitive status and functional ability. She was mixing up her medications, could not walk without assistance, did not know how to brush her teeth or tie her shoes. Head CT at an outside hospital showed subacute infarcts in the right temporoparietal and occipital lobe and chronic small-vessel ischemic changes. She continued to decline and was transferred to [facility]. Brain MRI showed bilateral diffuse FLAIR hyperintensities consistent with ARIA. She was treated with Solu-Medrol 500 mg every 12 hours for 5 days and then switch to oral prednisone 80 mg daily with prolonged taper over 8-10 weeks decreasing by 10 mg every week. Brain MRI from 04/02/2022 showed possible increase in ventricular volume suggesting possible hydrocephalus, increased number of microhemorrhages she was receiving rehab, her walking and speech was better balance improving with physical therapy. She was not having symptoms consistent with hydrocephalus. She was still on prednisone taper. Brain MRI was completed again 05/01/2022 which showed worsening cortical and subcortical T2 FLAIR hyperintense signal in the occipital lobes likely representing edema variant ARIA-E. Numerous microhemorrhages unchanged, likely related to ARIA-H. Assessment & Plan (07/10/2023 12:38 PM CDT): Try crushing donepezil/Aricept 10 mg daily and Namenda/memantine 5 mg BID (did not tolerate higher doses) CS' met with [employer] Delmy Evans for resources and support, more oversight and assistance with medication would be beneficial. ASMITA (obstructive sleep apnea) 09/26/2020 Memory loss 02/18/2020 Depression 01/26/2019 Anxiety 01/26/2019 Morbid obesity 01/26/2019 Right renal mass 01/06/2019 Overview (01/06/2019): Added automatically from request for surgery [id number] Resolved Problems Problem Noted Date Diagnosed Date Resolved Date Alzheimer's disease 09/10/2021 12/06/19 Anxiety and depression 09/26/202012/05 Aftercare following joint replacement 01/28/2018 01/26/2019 Overview (01/28/2018): Right knee replacement Encounters Date Type Department Care Team Description 04/06/2024 Telephone [facility] [address] [facility] [facility] 6th [address] [place] [id number] Saida Evans, RN 04/06/2024 Telephone [facility] [address] [place] [address] Saida Evans, RN 04/06/2024 Documentation [facility] [address] [facility] [facility] 6[address] [place] [address] Saida Evans, RN 04/05/2024 Telephone [facility] [address] [facility] [facility] 6[address] [place] [phone] Saida Evans, RN from Last 3 Months Immunizations Immunization Administration Dates Next Due Influenza, Trivalent, High D ose, Split, Preservative Free, Intramuscular 02/06/2019 Influenza, Unspecified 12/29/2013 Surgical History Surgery Date Site/Laterality Comments CHOLECYSTECTOMY 03/31/1993 - 03/30/1994 BASAL CELL CARCINOMA EXCISION 03/31/2005 - 03/30/2006 eyelid TOTAL KNEE ARTHROPLASTY 03/31/2015 - 03/30/2016 Right REPLACEMENT TOTAL KNEE 10/29/2017 - 11/28/2017 Left EMBOLIZATION ORGAN ISCHEMIA OR INFARCTION 02/05/2019 N/A Medical History Medical History Date Comments Basal cell adenocarcinoma Depression ASMITA (obstructive sleep apnea) Arthritis Balance disorder Family History Medical History Relation Name Comments Mental illness Brother Chronic menta l illness - (Added by TW Conv) Heart disease Father Family history of cardiac disorder - (Added by TW Conv) Alcohol abuse Maternal Grandfather Family history of alcoholism - Relation: Grandfather (Added by TW Conv) Heart disease Maternal Grandfather Family history of cardiac disorder - Relation: Grandfather (Added by TW Conv) Alcohol abuse Other 1 Family history of alcoholism - Relation: Aunt (Added by TW Conv) Cancer Other 2 Family history of malignant neoplasm - Relation: Grandmother (Added by TW Conv) Cancer Other 3 Family history of malignant neoplasm - Relation: Uncle (Added by TW Conv) Diabetes Other 4 Family history of diabetes mellitus - Relation: Grandmother (Added by TW Conv) Diabetes Other 5 Family history of diabetes mellitus - Relation: Aunt (Added by TW Conv) Diabetes Other 6 Family history of diabetes mellitus - Relation: Uncle (Added by TW Conv) Mental illness Other 7 Chronic menta l illness - Relation: Grandmother (Added by TW Conv) Relation Name Status Comments Brother Father Maternal Grandfather Other 1 Other 2 Other 3 Other 4 Other 5 Other 6 Other 7 Social History Tobacco Use Types Packs/Day Years Used Date Smoking Tobacco: Never Smokeless Tobacco: Never Tobacco Cessation:Counseling Given: Not Answered Alcohol Use Standard Drinks/Week Comments Yes 0 (1 standard drink = 0.6 oz pur e alcohol) rare Comments No Sex and Gender Information Value Date Recorded Sex Assigned at Not on file Legal Sex Female 8:30 PM TILT WALL SUPERVISOR Gender Identity Female 2020 5:16 PM CDT Sexual Orientation Not on file Obstetrics History Last Filed Vital Signs Vital Sign Reading Time Taken Comments Blood Pressure 105/66 01/22/2024 9:05 AM CDT Pulse 66 01/22/2024 9:05 AM CDT Temperature 36.9 C (98.4 F) 01/22/2024 9:05 AM CDT Respiratory Rate 16 02/19/2022 8:48 AM TILT WALL SUPERVISOR Oxygen Saturation 97% 01/22/2024 9:05 AM CDT Inhaled Oxygen Concentration - - Weight 61.2 kg (135 lb) 01/22/2024 9:05 AM CDT Height 165.1 cm (5' 5 ) 01/22/2024 9:05 AM CDT Body Mass Index 22.47 01/22/2024 9:05 AM CDT Plan of Treatment Health Maintenance Due Date Last Done Comments Depression Screening 1945 Hepatitis C Screening 1945 Osteoporosis Screening-Bone Density Scan 1945 Hepatitis B Screening 09/24/1965 Pneumococcal vaccine 65+ (1 of 1 - PCV) 09/24/1997 Zoster Vaccine (1 of 2) 09/24/1997 Well Visit 65+ 09/24/2012 DTaP/Tdap/Td Vaccine (1 - Tdap) 10/29/2017 8 Fall Risk Assessment 02/19/2023 02/19/2022 Influenza Vaccine (#1) 2023 9, 12/24/2017, 12/29/2013 Medical Devices Implanted Type Area Receptionist Scheduler Device Identifier Shelf Expiration Date Model / Serial / Lot Mya [employer] Inc [id number] Palacos Lv Broad Spectrum Cement 40gm Bone - Sn/A - [id number] Implanted:Qty: 1 on 11/04/2017 by Sonu Schulte MD at [facility] Left: Patella [employer] 01/28/2022 [id number] / N/A / [id number] [employer] [id number] Vanguard 72.5mm Cruciate Retaining Primary Knee Left Component - Sn/A - [id number] Implanted:Qty: 1 on 11/04/2017 by Sonu Schulte MD at [facility] Left: Knee [employer] [id number] 08/19/2027 [id number] / N/A / [id number] My[employer] [id number] 75mm Primary Knee Tray Tibial Porous - Sn/A - [id number] Implanted:Qty: 1 on 11/04/2017 by Sonu Schulte MD at [facility] Left: Knee [employer] [id number] 08/15/2022 [id number] / N/A / [id number] My[employer] Inc [id number] Ascent Maxim 12.5mm 80mm Primary Fin Knee Stem Tibial - Sn/A - [id number] Implanted:Qty: 1 on 11/04/2017 by Sonu Schulte MD at [facility] Left: Knee [employer] [id number] 09/22/2027 [id number] / N/A / [id number] [employer] [id number] Vanguard [id number] Anterior Stabilize Inlay Knee 0d Bearing - Sn/A - [id number] Implanted:Qty: 1 on 11/04/2017 by Sonu Schulte MD at [facility] Left: Knee [employer] [id number] 09/12/2022 [id number] / N/A / [id number] My[employer] [id number] 6.5mm 30mm Self Tap Low Profile Hip Acetabular Cancellous Dome - Sn/A - [id number] Implanted:Qty: 1 on 11/04/2017 by Sonu Schulte MD at [facility] Left: Knee [employer] 06/14/2027 [id number] / N/A / [id number] My[employer] [id number] 6.5mm 30mm Self Tap Low Profile Hip Acetabular Cancellous Dome - Sn/A - [id number] Implanted:Qty: 1 on 11/04/2017 by Sonu Scuhlte MD at [facility] Left: Knee [employer] 06/13/2027 [id number] / N/A / [id number] My[employer] [id number] 6.5mm 40mm Self Tap Low Profile Hip Acetabular Cancellous Dome - Sn/A - [id number] Implanted:Qty: 2 on 11/04/2017 by Sonu Schulte MD at [facility] Left: Knee [employer] 10/07/2027 [id number] / N/A / [id number] My[employer] [id number] 28mm 1 Peg Wire Knee Standard Component Patellar Series A - Sn/A - [id number] Implanted:Qty: 1 on 11/04/2017 by Sonu Schulte MD at [facility] Left: Patella [employer] Inc [id number] 2022 [id number] / N/A / [id number] Daig Tasha [id number] Device Closure Angio-Seal Vip Bondek-Plus Polyglyd L70 Cm Od6 Fr Odsec.035 In Vascular - [id number] Implanted:Qty: 1 on 02/05/2019 at [facility] Daig Tasha[employer] 06/29/2019 [id number] / / [id number] Insurance COMMERCIAL GENERIC MEDICARE [facility] UHC MEDICARE ADVANTAGE MEDICARE COMMERCIAL GENERIC BLUE [employer] [facility] MEDICARE Advance Directives For more information, please contact: [phone] Documents on File Type Date Recorded Patient Podiatric Medicine Professor Expl anation Power of Tilting Saw Operator 02/13/2022 11:08 PM ADVANCE DIRECTIVE 02/05/2019 7:00 AM * Full Code (Latest Code Status on File) Date Activated Date Inactivated Comments 02/14/2022 12:10 PM 02/19/2022 11:38 PM * Full Code Date Activated Date Inactivated Comments 02/05/2019 6:37 PM 02/08/2019 4:19 PM * Full Code Date Activated Date Inactivated Comments 02/05/2019 6:37 PM 02/05/2019 6:37 PM * Full Code Date Activated Date Inactivated Comments 02/05/2019 6:37 PM 02/05/2019 6:37 PM * Full Code Date Activated Date Inactivated Comments 11/07/2017 6:35 PM 02/05/2019 6:55 AM Care Teams Flue Gas Analyst Relationship Specialty Start Date End Date Dorothy Tao MD PCP - General 06/17/17 Izzy Mosqueda, RN CJR Outpatient Measurement Psychologist 10/29/17 [place] [address] [facility] [place] [address] Consulting Physician Urology 02/08/19 Rafaela Stroud MD [address] [place] [address] Referring Physician Neurology 09/26/20
--- OUTSIDE RECORDS SUMMARY | 2024-06-23 13:45 | XMS_ITS | Encounter Summary ---
Author Organization [facility] Healthcare Address [address] [place] [address] Care Team Providers Care Newspaper Photo Editor Name Role Phone Dorothy Tao MD Primary Care Provider + Izzy Mosqueda RN Unavailable Unavailable Abel Groves MD Unavailable [phone] Rafaela Stroud MD Unavailable Encounter Details Date Type Department Care Team (Late st Contact Info) Description 11/06/2017 Documentation [facility] Case Management [address] [place] [address] Lauren Lan RN Social History Tobacco Use Types Packs/Day Years Used Date Smoking Tobacco: Never Smokeless Tobacco: Never Alcohol Use Standard Drinks/Week Comments Yes 0 (1 standard drink = 0.6 oz pur e alcohol) rare Comments No Sex and Gender Information Value Date Recorded Sex Assigned at Not on file Legal Sex Female 8:30 PM ENVIRONMENTAL 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 PROFESSOR Gender Identity Female 2020 5:16 PM CDT Sexual Orientation Not on file documented as of this encounter Plan of Treatment Not on file documented as of this encounter Visit Diagnoses Not on filedocumented in this encounter Care Teams Newspaper Photo Editor Relationship Specialty Start Date End Date Dorothy Tao MD PCP - General 06/17/17 Hannum, Izzy S., RN CJR Outpatient Manager Air 10/29/17 [place] [address] [place] [address] Consulting Physician Urology 02/08/19 Rafaela Stroud MD [address] [place] [address] Referring Physician Neurology 09/26/20 documented as of this encounter
--- OUTSIDE RECORDS SUMMARY | 2024-06-23 13:45 | XMS_ITS | Encounter Summary ---
Author Organization [facility] Healthcare Address [address] [place] [address] Care Team Providers Care Investment Director Name Role Phone Dorothy Tao MD Primary Care Provider + Izzy Mosqueda RN Unavailable Unavailable Abel Groves MD Unavailable [phone] Rafaela Stroud MD Unavailable Encounter Details Date Type Department Care Team (Late st Contact Info) Description 02/04/2019 Telephone [facility] - Interventional Radiology [address] [place] [address] Brandi Oglesby RN Social History Tobacco Use Types Packs/Day Years Used Date Smoking Tobacco: Never Smokeless Tobacco: Never Alcohol Use Standard Drinks/Week Comments Yes 0 (1 standard drink = 0.6 oz pur e alcohol) rare Comments No Sex and Gender Information Value Date Recorded Sex Assigned at Not on file Legal Sex Female 8:30 PM DIRECTOR SEMICONDUCTOR Gender Identity Female 2020 5:16 PM CDT Sexual Orientation Not on file documented as of this encounter Plan of Treatment Not on file documented as of this encounter Visit Diagnoses Not on filedocumented in this encounter Care Teams Investment Director Relationship Specialty Start Date End Date Dorothy Tao MD PCP - General 06/17/17 Izzy Mosqueda RN CJR Outpatient Integrated Circuit Layout Designer 10/29/17 [place] [address] [place] [address] Consulting Physician Urology 02/08/19 Rafaela Stroud MD [address] [place] [address] Referring Physician Neurology 09/26/20 documented as of this encounter
--- OUTSIDE RECORDS SUMMARY | 2024-06-23 13:45 | XMS_ITS | Referral Summary ---
Author Organization [facility] Address [address] [place] [address] Care Team Providers Care Outpatient Physical Therapist Assistant Name Role Phone Dorothy Tao MD Primary Care Provider + Izzy Mosqueda RN Unavailable Unavailable Abel Groves MD Unavailable [phone] Rafaela Stroud MD Unavailable Encounters Date Type Department Care Team Description 04/06/2024 Telephone [facility] [address] [facility] 6th [address] [place] [address] Saida Evans, RN 04/06/2024 Telephone [facility] [address] [facility] 6th [address] [place] [address] Saida Evans, RN 04/06/2024 Documentation [facility] [address] [facility] [address] [place] [address] Saida Evans, RN 04/05/2024 Telephone [facility] [address] [facility] 6[address] [place] [address] Saida Evans, RN from Last 3 Months Allergies No known active allergies Medications cholecalciferol (VITAMIN D-3) 1,000 unit capsule Take 1 capsule (1,000 Units total) by mouth daily 30 capsule 02/20/2022 Active ARIPiprazole (ABILIFY) 1 mg/mL mL 06/30/2023 Active rivastigmine (EXELON) 9.5 mg/[address] 9.5 mg on the skin daily 30 patch 11 01/22/2024 Active Active Problems Problem Noted Date Diagnosed [...] (07/10/2023): She is followed by Psychiatry at [facility], Dr. Stroud. She did participate in a clinical trial for Joanna Remternetug through [employer]. Hospitalized 02/13/2022-02/19/2022 for rapidly progressive [...] continued to decline and was transferred to [facility]. Brain MRI showed bilateral diffuse FLAIR hyperintensities [...] not tolerate higher doses) CS' met with [employer] Delmy Evans for resources and support, more oversight and assistance with medication would be beneficial. ASMITA (obstructive sleep apnea) 09/26/2020 Memory loss 02/18/2020 Depression 01/26/2019 Anxiety 01/26/2019 Morbid obesity 01/26/2019 Right renal mass 01/06/2019 Overview (01/06/2019): Added automatically from request for surgery [id number] Resolved Problems Problem Noted Date Diagnosed Date Resolved Date Alzheimer's disease 09/10/2021 12/06/19 23 Anxiety and depression 09/26/202012/05 Aftercare following joint replacement 01/28/2018 01/26/2019 Overview (01/28/2018): Right knee replacement Immunizations Immunization Administration Dates Next Due Influenza, Trivalent, High D ose, Split, Preservative Free, Intramuscular 02/06/2019 Influenza, Unspecified 12/29/2013 Social History Tobacco Use Types Packs/Day Years Used Date Smoking Tobacco: Never Smokeless Tobacco: Never Tobacco Cessation:Counseling Given: Not Answered Alcohol Use Standard Drinks/Week Comments Yes 0 (1 standard drink = 0.6 oz pur e alcohol) rare Comments No Sex and Gender Information Value Date Recorded Sex Assigned at Not on file Legal Sex Female 8:30 PM MANAGER CULTURE Gender Identity Female 2020 5:16 PM CDT Sexual Orientation Not on file Last Filed Vital Signs Vital Sign Reading Time Taken Comments Blood Pressure 105/66 01/22/2024 9:05 AM CDT Pulse 66 01/22/2024 9:05 AM CDT Temperature 36.9 C (98.4 F) 01/22/2024 9:05 AM CDT Respiratory Rate 16 02/19/2022 8:48 AM MANAGER CULTURE Oxygen Saturation 97% 01/22/2024 9:05 AM CDT Inhaled Oxygen Concentration - - Weight 61.2 kg (135 lb) 01/22/2024 9:05 AM CDT Height 165.1 cm (5' 5 ) 01/22/2024 9:05 AM CDT Body Mass Index 22.47 01/22/2024 9:05 AM CDT Plan of Treatment Not on file Medical Devices Implanted Type Area Tripoler Device Identifier Shelf Expiration Date Model / Serial / Lot Mya [employer] Inc [id number] Palacos Lv Broad Spectrum Cement 40gm Bone - Sn/A - [id number] Implanted:Qty: 1 on 11/04/2017 by Sonu Schulte MD at [facility] Left: Patella [employer] 01/28/2022 [id number] / N/A / [id number] My[employer] Inc [id number] Vanguard 72.5mm Cruciate Retaining Primary Knee Left Component - Sn/A - [id number] Implanted:Qty: 1 on 11/04/2017 by Sonu Schulte MD at [facility] Left: Knee [employer] Inc [id number] 08/19/2027 [id number] / N/A / [id number] My[employer] Inc [id number] 75mm Primary Knee Tray Tibial Porous - Sn/A - [id number] Implanted:Qty: 1 on 11/04/2017 by Sonu Schulte MD at [facility] Left: Knee [employer] Inc [id number] 08/15/2022 [id number] / N/A / [id number] My[employer] Inc 399661 Ascent Maxim 12.5mm 80mm Primary Fin Knee Stem Tibial - Sn/A - [id number] Implanted:Qty: 1 on 11/04/2017 by Sonu Schulte MD at [facility] Left: Knee [employer] Inc [id number] 09/22/2027 [id number] / N/A / [id number] My[employer] Inc [id number] Vanguard [id number] Anterior Stabilize Inlay Knee 0d Bearing - Sn/A - [id number] Implanted:Qty: 1 on 11/04/2017 by Sonu Schulte MD at [facility] Left: Knee [employer] Inc [id number] 09/12/2022 [id number] / N/A / [id number] My[employer] Inc [id number] 6.5mm 30mm Self Tap Low Profile Hip Acetabular Cancellous Dome - Sn/A - [id number] Implanted:Qty: 1 on 11/04/2017 by Sonu Schulte MD at [facility] Left: Knee [employer] 06/14/2027 [id number] / N/A / [id number] My[employer] Inc [id number] 6.5mm 30mm Self Tap Low Profile Hip Acetabular Cancellous Dome - Sn/A - [id number] Implanted:Qty: 1 on 11/04/2017 by Sonu Schulte MD at [facility] Left: Knee [employer] 06/13/2027 [id number] / N/A / [id number] My[employer] Inc [id number] 6.5mm 40mm Self Tap Low Profile Hip Acetabular Cancellous Dome - Sn/A - [id number] Implanted:Qty: 2 on 11/04/2017 by Sonu Schulte MD at [facility] Left: Knee [employer] Inc 10/07/2027 [id number] / N/A / [id number] My[employer] Inc [id number] 28mm 1 Peg Wire Knee Standard Component Patellar Series A - Sn/A - [id number] Implanted:Qty: 1 on 11/04/2017 by Sonu Schulte MD at [facility] Left: Patella My[employer] Inc [id number] 2022 [id number] / N/A / [id number] Daig Tasha [id number] Device Closure Angio-Seal Vip Bondek-Plus Polyglyd L70 Cm Od6 Fr Odsec.035 In Vascular - [id number] Implanted:Qty: 1 on 02/05/2019 at [facility] Daig Tasha[employer] 06/29/2019 [id number] / / [id number] Insurance COMMERCIAL GENERIC MEDICARE [facility] MEDICARE ADVANTAGE MEDICARE COMMERCIAL GENERIC BLUE ACCESS CHOICE [place] MEDICARE Advance Directives For more information, please contact: [phone] Documents on File Type Date Recorded Patient Supervisor Inventory Merchandising Expl anation Power of Physics Technical Officer 02/13/2022 11:08 PM ADVANCE DIRECTIVE 02/05/2019 7:00 [...] 6:35 PM 02/05/2019 6:55 AM Care Teams Outpatient Physical Therapist Assistant Relationship Specialty Start Date End Date Dorothy Tao MD PCP - General 06/17/17 Izzy Mosqueda, RN CJR Outpatient Saddle Stitch Operator 10/29/17 [place] [address] [place] [address] Consulting Physician Urology 02/08/19 Rafaela Stroud MD [address] [place] [address] Referring Physician Neurology 09/26/20
[2024-06-23 14:12] LABS: Anion Gap 8 mmol/L (4-12); Blood Urea Nitrogen 19 mg/dL (7-17); Calcium 9.5 mg/dL (8.4-10.2); Carbon Dioxide 30 mmol/L (22-30); Chloride 104 mmol/L (98-107); Estimated Glomerular Filt Rate > 60; Glucose 95 mg/dL (65-110); Potassium 4.2 mmol/L (3.4-5.0); Sodium 142 mmol/L (137-145)
== END 2024-06-23 12:44 | disposition home or self-care (01) ==
PROVIDERS: PCP Family Medicine; Visit Provider Family Medicine
DX: M79.89 Other specified soft tissue disorders (principal)
CPT/HCPCS: 36415; 80048; 93971

== ENCOUNTER 2025-01-07 10:25 | Outpatient (NON) | payer MEDICARE, MEDICAID, SELFPAY | END 2025-01-07 10:26 | disposition home or self-care (01) | LOC: ANHGOSHLAB 10:25 | PROVIDERS: PCP Family Medicine; Visit Provider Family Medicine | DX: R41.82 Altered mental status, unspecified (principal) | CPT/HCPCS: 87086 ==

== ENCOUNTER 2025-02-21 18:49 | Outpatient (NON) | payer MEDICARE, MEDICAID, SELFPAY | END 2025-02-21 18:50 | disposition home or self-care (01) | LOC: ANHLAB 18:53 | PROVIDERS: PCP Family Medicine; Visit Provider Student in an Organized Health Care Education/Training Program | DX: R39.9 Unspecified symptoms and signs involving the genitourinary system (principal) | CPT/HCPCS: 87077; 87086; 87186 ==